=== PATIENT | female | born 1945 | race Caucasian/White ===

== ENCOUNTER → 2018-10-03 | Outpatient (CLI) | payer MEDICARE, BC ==
[~2018-10-03] MED LIST: ALBU90OI INH; ASPI325 PO; ASPI81CH; BUDE6HFA INH; CALMAGZIN PO; CELE200; CEPH500 PO; CHOL10002; CIPRO500 MG PO; CLON1 PO; Cleocin HCl300 MG PO; DOCU100; ERGO400 PO; FLUSAL1005 INH; HYOS.125 SL; LATA.005SO BOTHEYES; LAVAP17G PO; LIDO2L MM; LOSA50 PO; METR500 PO; MONT10T PO; MULVITMIND PO; NORT25 PO; OXYACE5T PO; PRAV20 PO; SERT50; TRAM50 PO; Zofran8 MG PO
== END | disposition home or self-care (01) ==
LOC: LAB SHORT 11:55 → LAB 11:55
DX: J44.9 Chronic obstructive pulmonary disease, unspecified (principal)
CPT/HCPCS: 87070; 87077; 87147; 87186; 87205

== ENCOUNTER 2018-12-08 20:29 | Inpatient (IN) | payer MEDICARE, BC ==
[~2018-12-08] VITALS: Ht 157.5 cm; Wt 55.5 kg
[~2018-12-08 20:29] MED LIST changes: +CALCIUM-MAGNES1 EAC2 PO; -CALMAGZIN PO; -CELE200; +CELE200 PO; -CHOL10002; +CHOL10002 PO; -MULVITMIND PO; +Multivitamin1 EAC1 PO
[2018-12-08 21:11] LABS: BASOPHILS ABSOLUTE AUTO 0.15 K/mm3 (0.00-0.23); BASOPHILS PERCENT AUTO 1 % (0-2); EOSINOPHILS ABSOLUTE AUTO 1.69 K/mm3 (0.00-0.68); EOSINOPHILS PERCENT AUTO 16 % (0-6); Hematocrit 42.1 % (33.0-51.0); Hemoglobin 13.9 g/dL (11.5-16.0); IMMATURE GRAN ABSOLUTE AUTO 0.03 K/mm3 (0.00-0.10); IMMATURE GRAN PERCENT AUTO 0 % (0-1); LYMPHOCYTES ABSOLUTE AUTO 1.41 K/mm3 (0.84-5.20); LYMPHOCYTES PERCENT AUTO 13 % (21-46); MONOCYTES ABSOLUTE AUTO 0.72 K/mm3 (0.16-1.47); MONOCYTES PERCENT AUTO 7 % (4-13); Mean Corpuscular Volume 94 fL (80-100); Mean Platelet Volume 8.5 fL (9.1-12.4); NEUTROPHILS ABSOLUTE AUTO 6.65 K/mm3 (1.96-9.15); NEUTROPHILS PERCENT AUTO 62 % (41-73); Platelet Count 311 K/mm3 (150-400); RDW Coefficient Variation 12.4 % (11.7-14.2); Red Blood Cell Count 4.48 M/mm3 (3.80-5.20); White Blood Cell Count 10.65 K/mm3 (4.00-11.30)
[2018-12-08 21:35] LABS: Alanine Aminotransfer (ALT/SGP 32 U/L (12-78); Albumin, Blood 4.1 g/dL (3.4-5.0); Albumin/Globulin Ratio 1.2 (0.8-1.8); Alk Phos 117 U/L (50-136); Anion Gap 8 mmol/L (6-16); Aspartate Aminotrans (AST/SGOT 26 U/L (12-37); Bilirubin, Total 0.4 mg/dL (0.1-1.0); Blood Urea Nitrogen 20 mg/dL (8-24); Bun/Creatinine Ratio 24.2 (12.0-20.0); CO2, Blood 28 mmol/L (21-32); Chloride, Blood 99 mmol/L (98-108); Creatinine, Blood 0.83 mg/dL (0.40-1.00); Globulin, Blood 3.3 g/dL (2.2-4.0); Glomerular Filtration Rate >60 (60-); Glucose, Blood 146 mg/dL (70-99); Potassium, Blood 3.7 mmol/L (3.5-5.5); Sodium, Blood 135 mmol/L (136-145); Total Protein, Blood 7.4 g/dL (6.4-8.2); Troponin I <0.015 ng/mL (0.000-0.040)
[2018-12-08 22:47] LABS: PCO2 Arterial 40.5 mmHg (35-45); PO2 Arterial 89.7 mmHg (80-100); pH Blood Arterial 7.41 (7.35-7.45)
[2018-12-09] MEDS ORDERED: Aspirin EC81 MG PO (02:08)
[2018-12-09] MEDS ORDERED: SERT100 PO (02:16)
[2018-12-09] MEDS ORDERED: TIOT18 INH (02:25)
--- NOTE | 2018-12-09 07:20 | NUR ---
AM ASSESSMENT: Pt resting in bed on 2L NC. SOB with any activity and states that it feels like she just can't take a deep breath. Biox 95%. Decreased down to 1L NC. LS with fine crackles in bases. BT positive. HR reg but slightly tachy at low 100. Pulses palp. No edema noted. Pt denies pain, SOB. Chronic numbness in ring finger only. Call light in reach. Denies other needs.
--- NOTE | 2018-12-09 08:21 | NUR ---
END OF SHIFT SUMMARY ASSUMED CARE FROM ED. PT ON BIPAP UPON COMING INTO ROOM. SWITCHED TO 2L NC UPON GETTING INTO PCU BED. PT TOLERATIG WELL, SPO2 >92%. PT ASKED TO WEAR BIAPAP IN ORDER TO GET SOME REST. TOERATED WELL. BIPAP SETTINGS 10/5 FIO2 25%. PT HYPERTENSIVE UPON ADMISSION, DR WILLSON PLACES ORDER TO GIVE AM COZAAR DOSE EARLY. PT'S BP DECREASES FROM 1710'S TO 140S SYSTOLICALLY. PT HAS BEEN UP TO BS, BECOMES SLIGHTLY DYSPNEIC WITH THIS EXERTION. PT HAS APPEARED TO HAVE RESTED POST ADMISSION ASSESMENT. CALL LIGHT WITHIN REACH AND BED IN LOWEST POSITION.
--- NOTE | 2018-12-09 13:15 | NUR ---
TRANSFER: TRANSFER ORDERS TO MEDICAL FLOOR. REPORT CALLED TO MEDICAL FLOOR RN AND PT TRANSFERED VIA W/C TO ROOM 343. STABLE AT TIME OF TRANFSER.
--- NOTE | 2018-12-09 15:09 | NUR ---
NOTIFIED DR. ELDER PT'S BP 184/[address] ELDER SAID TO ORDER 10MG IV HYDRALAZINE Q6H PRN FOR SYSTOLIC BP GREATER THAN 180. NO OTHER NEW ORDERS AT THIS TIME.
--- NOTE | 2018-12-09 16:59 | NUR ---
SHIFT SUMMARY- PT PCU TRANSFER THIS AFTERNOON. PT AXO X4. PT REPORTS MILD SOB. 92% ON 2L NC. BP AND HR ELEVATED. SEE PREVIOUS NOTE. MEDS GIVEN PER EMAR. REPORT GIVEN TO UNA Kearns RN. NO OTHER SIGNIFICANT CHANGES THIS SHIFT.
--- NOTE | 2018-12-09 19:16 | NUR ---
PT. SITTINING IN BED. TOOK OVER CARE OF PT. FROM ARIN GARCIA. IV APRESOLINE HAD BEEN GIVEN FOR A BP OF 184/106. BP POST APRESOLINE 139/108. HEART RATE TACY AT 118. WILL TURN OVER CARE TO ONCOMING FABBY GARCIA.
--- NOTE | 2018-12-10 03:40 | NUR ---
SHIFT SUMMARY PT ADMITTED FOR COPD. DROPLET ISOLATION FOR MRSA IN SPUTUM ON 10/03/18 AND HX OF MRSA IN NARES FROM 2017. FULL CODE. REGULAR DIET. TELE-SINUS TACHYCARDIA AT A RATE OF 102 PER FUGITIVE INVESTIGATOR. LOVENOX FOR DVT PROPHYLAXIS. PCU 12 TRANSFER TODAY. PT IS A RETIRED NURSE. 3L O2 VIA NC WITH CONT BIOX AND BIPAP IN PLACE AT THIS TIME. 1 ASSIST TO BR. 20G IV TO L AC. TAKES MEDICATION WHOLE. THE PT PRESENTED WITH C/O SOB. THE PT IS NOT ON HOME OXYGEN. THE PT WAS APPARENTLY FINISHING A STEROID TAPER DOSE AT HOME AND WHEN DECREASED TO 5MG THE PT STATED HAVING INCREASED SOB. IN THE ED IT WAS NOTED THAT PT HAD SOB WITH TRIPODDING AND WAS PLACED ON BIPAP. WHEN REMOVAL OF BIPAP WAS ATTEMPTED THAT PT DESAT TO 80% AND WAS PLACED ON O2 VIA NC AND IMPROVED. THE PT IS ALERT, ORIENTED, PLEASENT, AND COOPERATIVE. THE PT FREQUENTLY WAITS UNTIL REMOVAL OF GOWN, GLOVES, AND MASK BEFORE ASKING FOR ADDITIONAL ASSISTANCE EVEN WHEN ASKED IS FURTHER ASSISTANCE IS NEEDED. OFFER REASSURANCE AND PROVIDE QUESTIONS TO ENCOURAGE PT ABILITY TO VOICE NEEDS TO CLUSTER CARE. THE PT WENT TO SLEEP AROUND 0100 THIS AM WITH BIPAP IN PLACE. THE PT HAS APPEARED TO SLEEP COMFORTABLY MOST OF THE NIGHT WITH NO APPARENT SIGNS OF ACUTE DISTRESS. ABLE TO MAKE NEEDS KNOWN AND CALL LIGHT IN REACH.
[2018-12-10 04:56] LABS: BASOPHILS ABSOLUTE AUTO 0.02 K/mm3 (0.00-0.23); BASOPHILS PERCENT AUTO 0 % (0-2); EOSINOPHILS ABSOLUTE AUTO 0.01 K/mm3 (0.00-0.68); EOSINOPHILS PERCENT AUTO 0 % (0-6); Hematocrit 42.4 % (33.0-51.0); Hemoglobin 13.6 g/dL (11.5-16.0); IMMATURE GRAN ABSOLUTE AUTO 0.03 K/mm3 (0.00-0.10); IMMATURE GRAN PERCENT AUTO 0 % (0-1); LYMPHOCYTES ABSOLUTE AUTO 0.53 K/mm3 (0.84-5.20); LYMPHOCYTES PERCENT AUTO 5 % (21-46); MONOCYTES ABSOLUTE AUTO 0.28 K/mm3 (0.16-1.47); MONOCYTES PERCENT AUTO 3 % (4-13); Mean Corpuscular HGB 30.1 pg (26.0-34.0); Mean Corpuscular HGB Conc 32.1 g/dL (31.5-36.5); Mean Corpuscular Volume 94 fL (80-100); Mean Platelet Volume 8.8 fL (9.1-12.4); NEUTROPHILS PERCENT AUTO 92 % (41-73); Platelet Count 310 K/mm3 (150-400); RDW Coefficient Variation 12.6 % (11.7-14.2); RDW Standard Deviation 43.6 fL (35.1-46.3); Red Blood Cell Count 4.52 M/mm3 (3.80-5.20); White Blood Cell Count 10.57 K/mm3 (4.00-11.30)
[2018-12-10 05:41] LABS: Alanine Aminotransfer (ALT/SGP 27 U/L (12-78); Albumin, Blood 4.1 g/dL (3.4-5.0); Albumin/Globulin Ratio 1.2 (0.8-1.8); Alk Phos 92 U/L (50-136); Anion Gap 6 mmol/L (6-16); Aspartate Aminotrans (AST/SGOT 19 U/L (12-37); Bilirubin, Total 0.3 mg/dL (0.1-1.0); Blood Urea Nitrogen 20 mg/dL (8-24); Bun/Creatinine Ratio 29.2 (12.0-20.0); CO2, Blood 27 mmol/L (21-32); Calcium, Blood 9.1 mg/dL (8.5-10.1); Chloride, Blood 102 mmol/L (98-108); Creatinine, Blood 0.69 mg/dL (0.40-1.00); Globulin, Blood 3.5 g/dL (2.2-4.0); Glomerular Filtration Rate >60 (60-); Glucose, Blood 135 mg/dL (70-99); Potassium, Blood 4.2 mmol/L (3.5-5.5); Sodium, Blood 135 mmol/L (136-145); Total Protein, Blood 7.6 g/dL (6.4-8.2)
--- NOTE | 2018-12-10 19:13 | NUR ---
SHIFT SUMMARY: NO ACUTE CHANGES TO REPORT THIS SHIFT. PT A&O; CALM AND COOPERATIVE WITH CARE. MEDICATED FOR PAIN PER EMAR. TELE IN PLACE; ST @ 107 PER MAINSPRING WINDER DURING MORNING ASSESSMENT. O2 TITRATED TO 2L THIS SHIFT; 97% PER CONT BIOX. IV STEROIDS CONTINUING. REPORT GIVEN TO ONCOMING RN.
--- NOTE | 2018-12-11 04:30 | NUR ---
SHIFT SUMMARY NO APPARENT ACUTE CHANGES NOTED SO FAR THIS SHIFT. THE PT DID NOT WEAR BIPAP THIS NIGHT AND DESAT TO 87, APPLIED O2 AT 2L AND INCREASED TO 91%. PT ASKED TO HAVE DOOR CLOSED, PT USES CALL LIGHT APPROPRIATELY. THE PT APPEARS TO BE SLEEPING COMFORTABLY AT THIS TIME WITH NO APPARENT SIGNS FO ACUTE DISTRESS. ABLE TO MAKE NEEDS KNOWN AND CALL LIGHT IN REACH.
[2018-12-11 07:13] LABS: BASOPHILS ABSOLUTE AUTO 0.03 K/mm3 (0.00-0.23); BASOPHILS PERCENT AUTO 0 % (0-2); EOSINOPHILS ABSOLUTE AUTO 0.01 K/mm3 (0.00-0.68); EOSINOPHILS PERCENT AUTO 0 % (0-6); Hematocrit 39.7 % (33.0-51.0); Hemoglobin 12.7 g/dL (11.5-16.0); IMMATURE GRAN ABSOLUTE AUTO 0.04 K/mm3 (0.00-0.10); IMMATURE GRAN PERCENT AUTO 0 % (0-1); LYMPHOCYTES ABSOLUTE AUTO 1.09 K/mm3 (0.84-5.20); LYMPHOCYTES PERCENT AUTO 12 % (21-46); MONOCYTES ABSOLUTE AUTO 0.62 K/mm3 (0.16-1.47); MONOCYTES PERCENT AUTO 7 % (4-13); Mean Corpuscular HGB 30.2 pg (26.0-34.0); Mean Corpuscular Volume 95 fL (80-100); Mean Platelet Volume 8.6 fL (9.1-12.4); NEUTROPHILS ABSOLUTE AUTO 7.16 K/mm3 (1.96-9.15); NEUTROPHILS PERCENT AUTO 80 % (41-73); Platelet Count 306 K/mm3 (150-400); RDW Coefficient Variation 12.8 % (11.7-14.2); RDW Standard Deviation 44.1 fL (35.1-46.3); White Blood Cell Count 8.95 K/mm3 (4.00-11.30)
[2018-12-11 07:26] LABS: Alanine Aminotransfer (ALT/SGP 30 U/L (12-78); Albumin, Blood 3.9 g/dL (3.4-5.0); Albumin/Globulin Ratio 1.2 (0.8-1.8); Alk Phos 86 U/L (50-136); Anion Gap 7 mmol/L (6-16); Aspartate Aminotrans (AST/SGOT 15 U/L (12-37); Bilirubin, Total 0.3 mg/dL (0.1-1.0); Blood Urea Nitrogen 15 mg/dL (8-24); Bun/Creatinine Ratio 22.6 (12.0-20.0); CO2, Blood 29 mmol/L (21-32); Calcium, Blood 8.7 mg/dL (8.5-10.1); Chloride, Blood 101 mmol/L (98-108); Creatinine, Blood 0.66 mg/dL (0.40-1.00); Globulin, Blood 3.2 g/dL (2.2-4.0); Glomerular Filtration Rate >60 (60-); Glucose, Blood 108 mg/dL (70-99); Potassium, Blood 4.1 mmol/L (3.5-5.5); Sodium, Blood 137 mmol/L (136-145); Total Protein, Blood 7.1 g/dL (6.4-8.2)
--- NOTE | 2018-12-11 18:57 | NUR ---
SHIFT SUMMARY VISITED. PT HAD MILKD PAIN IN HER NECK/BACK, TREATED PER EMAR. TELE DC'D. R POWERGLIDE C/D/I AND FLUSHES WELL. ON 2L WITH CONT PULSE OX. SBA TO BR, CALLS APPROPRIATELY. DROPLET FOR MRSA IN SPUTUM. ABX CHANGED TO VANCO TO COVER MRSA. HOME O2 EVAL TO BE DONE TOMORROW. HAD CT, AWAITING RESULTS. CALL LIGHT IN REACH, WCTM
[2018-12-12 04:57] LABS: BASOPHILS ABSOLUTE AUTO 0.08 K/mm3 (0.00-0.23); BASOPHILS PERCENT AUTO 1 % (0-2); EOSINOPHILS PERCENT AUTO 3 % (0-6); Hematocrit 37.5 % (33.0-51.0); IMMATURE GRAN ABSOLUTE AUTO 0.03 K/mm3 (0.00-0.10); IMMATURE GRAN PERCENT AUTO 0 % (0-1); LYMPHOCYTES ABSOLUTE AUTO 1.55 K/mm3 (0.84-5.20); LYMPHOCYTES PERCENT AUTO 17 % (21-46); MONOCYTES ABSOLUTE AUTO 0.84 K/mm3 (0.16-1.47); MONOCYTES PERCENT AUTO 9 % (4-13); Mean Corpuscular HGB 31.1 pg (26.0-34.0); Mean Corpuscular Volume 97 fL (80-100); Mean Platelet Volume 8.6 fL (9.1-12.4); NEUTROPHILS ABSOLUTE AUTO 6.32 K/mm3 (1.96-9.15); NEUTROPHILS PERCENT AUTO 69 % (41-73); Platelet Count 276 K/mm3 (150-400); RDW Coefficient Variation 12.8 % (11.7-14.2); RDW Standard Deviation 45.7 fL (35.1-46.3); Red Blood Cell Count 3.86 M/mm3 (3.80-5.20); White Blood Cell Count 9.12 K/mm3 (4.00-11.30)
[2018-12-12 05:16] LABS: Alanine Aminotransfer (ALT/SGP 25 U/L (12-78); Albumin, Blood 3.6 g/dL (3.4-5.0); Albumin/Globulin Ratio 1.3 (0.8-1.8); Alk Phos 76 U/L (50-136); Anion Gap 5 mmol/L (6-16); Aspartate Aminotrans (AST/SGOT 15 U/L (12-37); Bilirubin, Total 0.4 mg/dL (0.1-1.0); Blood Urea Nitrogen 25 mg/dL (8-24); Bun/Creatinine Ratio 33.6 (12.0-20.0); CO2, Blood 30 mmol/L (21-32); Calcium, Blood 8.4 mg/dL (8.5-10.1); Chloride, Blood 103 mmol/L (98-108); Creatinine, Blood 0.74 mg/dL (0.40-1.00); Globulin, Blood 2.8 g/dL (2.2-4.0); Glomerular Filtration Rate >60 (60-); Glucose, Blood 89 mg/dL (70-99); Magnesium, Blood 2.5 mg/dL (1.6-2.4); Phosphorus, Blood 4.1 mg/dL (2.5-4.9); Potassium, Blood 3.7 mmol/L (3.5-5.5); Sodium, Blood 138 mmol/L (136-145); Total Protein, Blood 6.4 g/dL (6.4-8.2)
--- NOTE | 2018-12-12 06:25 | NUR ---
SHIFT SUMMARY PATIENT IS ALERT AND ORIENTED, USES CALL LIGHT APPROPRIATELY. HAS A POWER GLIDE IN RIGHT UPPER ARM THAT FLUSHES WELL AND DRAWS BACK BLOOD WELL. PATIENT IS TO HAVE A HOME O2 EVAL TODAY. MS ON 2L NC, CONTINUOUS BIOX. PATIENT SLEPT WELL THROUGHOUT THE NIGHT. PATIENT IS LIKELY TO DISCHARGE TODAY. NO COMPLAINTS OF CP OR SOB DURING SHIFT. VITALS STABLE.
[2018-12-12] MEDS ORDERED: Acetaminophen325 M1 PO (13:05)
[2018-12-12] MEDS ORDERED: DOXY100 PO (13:09)
[2018-12-12] MEDS ORDERED: PRED10 (13:25)
--- NOTE | 2018-12-12 14:30 | NUR ---
Mewt pt in bed resting ,pt reports to be doing nvery well, encourageds pt. and offered prayers .
--- NOTE | 2018-12-12 14:40 | NUR ---
DISCHARGE PT DISCHARGED TO HOME. THIS RN EXPLAINED DISCHARGE INSTRUCTIONS AND MEDICATIONS TO PT AND SHE REPORTS SHE UNDERSTANDS. POWERGLIDE REMOVED WITHOUT DIFFICULTY. PT TRANSFERRED TO PRIVATE VEHICLE VIA WHEELCHAIR BY DIRECTOR TECHNICAL. PT'S BELONGINGS WITH SPOUSE.
== END 2018-12-12 13:51 | disposition home or self-care (01) | DRG 189 ==
LOC: ER 20:29 → MEDS 12-09 00:50 → PCU 12-09 00:50 → MEDS 12-09 01:54 → EDPENDDIS 12-11 13:57 → ENPENDDIS 12-11 13:57 → MEDS 12-11 22:23
PROVIDERS: Emergency Medicine; Family Medicine; Physician Assistant; ADMIT Internal Medicine
PROC: 5A09357 Assistance with Respiratory Ventilation, Less than 24 Consecutive Hours, Continuous Positive Airway Pressure (ICD-10-PCS; principal; 2018-12-09)
DX: J96.01 Acute respiratory failure with hypoxia (principal); J44.1 Chronic obstructive pulmonary disease with (acute) exacerbation; A49.02 Methicillin resistant Staphylococcus aureus infection, unspecified site; I10 Essential (primary) hypertension; E78.5 Hyperlipidemia, unspecified; J32.9 Chronic sinusitis, unspecified; Z87.891 Personal history of nicotine dependence
CPT/HCPCS: 36415; 36600; 71046; 71260; 80053; 82803; 83605; 83735; 84100; 84145; 84484; 85025; 87040; 87070; 87077; 87147; 87186; 87205; 93005; 93010; 94640; 94644; 94660; 94664; 94667; 94760; 94761; 94762; 96365; 96366; 96368; 96375; 98960; 99285-25; J0360; J0696; J1650; J2543; J2920; J2930; J3370; J3475; J7050; J7120; Q9967

== ENCOUNTER 2018-12-27 13:29 | Inpatient (IN) | payer MEDICARE, BC ==
[~2018-12-27] VITALS: Ht 157.5 cm; Wt 55.8 kg
[~2018-12-27 13:29] MED LIST changes: +Acetaminophen325 M1 PO; +Aspirin EC81 MG PO; +DOXY100 PO; +PRED10; +SERT100 PO; +TIOT18 INH
[2018-12-27 14:31] LABS: BASOPHILS ABSOLUTE AUTO 0.06 K/mm3 (0.00-0.23); BASOPHILS PERCENT AUTO 1 % (0-2); EOSINOPHILS ABSOLUTE AUTO 0.78 K/mm3 (0.00-0.68); EOSINOPHILS PERCENT AUTO 15 % (0-6); Hematocrit 39.4 % (33.0-51.0); Hemoglobin 12.8 g/dL (11.5-16.0); IMMATURE GRAN ABSOLUTE AUTO 0.02 K/mm3 (0.00-0.10); IMMATURE GRAN PERCENT AUTO 0 % (0-1); LYMPHOCYTES ABSOLUTE AUTO 0.89 K/mm3 (0.84-5.20); LYMPHOCYTES PERCENT AUTO 17 % (21-46); MONOCYTES ABSOLUTE AUTO 0.49 K/mm3 (0.16-1.47); MONOCYTES PERCENT AUTO 10 % (4-13); Mean Corpuscular HGB 30.4 pg (26.0-34.0); Mean Corpuscular HGB Conc 32.5 g/dL (31.5-36.5); Mean Corpuscular Volume 94 fL (80-100); Mean Platelet Volume 8.6 fL (9.1-12.4); NEUTROPHILS ABSOLUTE AUTO 2.87 K/mm3 (1.96-9.15); NEUTROPHILS PERCENT AUTO 56 % (41-73); Platelet Count 223 K/mm3 (150-400); RDW Coefficient Variation 12.5 % (11.7-14.2); RDW Standard Deviation 43.4 fL (35.1-46.3); Red Blood Cell Count 4.21 M/mm3 (3.80-5.20); White Blood Cell Count 5.11 K/mm3 (4.00-11.30)
[2018-12-27 14:56] LABS: Alanine Aminotransfer (ALT/SGP 39 U/L (12-78); Albumin, Blood 3.6 g/dL (3.4-5.0); Albumin/Globulin Ratio 1.2 (0.8-1.8); Alk Phos 82 U/L (50-136); Anion Gap 6 mmol/L (6-16); Aspartate Aminotrans (AST/SGOT 20 U/L (12-37); Bilirubin, Total 0.3 mg/dL (0.1-1.0); Blood Urea Nitrogen 11 mg/dL (8-24); Bun/Creatinine Ratio 15.9 (12.0-20.0); CO2, Blood 28 mmol/L (21-32); Calcium, Blood 8.6 mg/dL (8.5-10.1); Chloride, Blood 99 mmol/L (98-108); Creatinine, Blood 0.69 mg/dL (0.40-1.00); Globulin, Blood 3.1 g/dL (2.2-4.0); Glomerular Filtration Rate >60 (60-); Glucose, Blood 94 mg/dL (70-99); Sodium, Blood 133 mmol/L (136-145); Total Protein, Blood 6.7 g/dL (6.4-8.2); Troponin I <0.015 ng/mL (0.000-0.040)
[2018-12-28 05:11] LABS: BASOPHILS ABSOLUTE AUTO 0.01 K/mm3 (0.00-0.23); BASOPHILS PERCENT AUTO 0 % (0-2); EOSINOPHILS PERCENT AUTO 0 % (0-6); Hemoglobin 12.8 g/dL (11.5-16.0); IMMATURE GRAN ABSOLUTE AUTO 0.04 K/mm3 (0.00-0.10); IMMATURE GRAN PERCENT AUTO 1 % (0-1); LYMPHOCYTES ABSOLUTE AUTO 0.32 K/mm3 (0.84-5.20); LYMPHOCYTES PERCENT AUTO 6 % (21-46); MONOCYTES ABSOLUTE AUTO 0.04 K/mm3 (0.16-1.47); MONOCYTES PERCENT AUTO 1 % (4-13); Mean Corpuscular HGB 30.1 pg (26.0-34.0); Mean Corpuscular HGB Conc 32.8 g/dL (31.5-36.5); Mean Corpuscular Volume 92 fL (80-100); Mean Platelet Volume 8.8 fL (9.1-12.4); NEUTROPHILS ABSOLUTE AUTO 4.59 K/mm3 (1.96-9.15); NEUTROPHILS PERCENT AUTO 92 % (41-73); Platelet Count 229 K/mm3 (150-400); RDW Coefficient Variation 12.4 % (11.7-14.2); RDW Standard Deviation 41.5 fL (35.1-46.3); Red Blood Cell Count 4.25 M/mm3 (3.80-5.20)
[2018-12-28 05:42] LABS: Alanine Aminotransfer (ALT/SGP 35 U/L (12-78); Albumin, Blood 3.6 g/dL (3.4-5.0); Albumin/Globulin Ratio 1.1 (0.8-1.8); Alk Phos 77 U/L (50-136); Anion Gap 9 mmol/L (6-16); Aspartate Aminotrans (AST/SGOT 19 U/L (12-37); Bilirubin, Total 0.5 mg/dL (0.1-1.0); Blood Urea Nitrogen 16 mg/dL (8-24); Bun/Creatinine Ratio 22.7 (12.0-20.0); CO2, Blood 26 mmol/L (21-32); Calcium, Blood 8.7 mg/dL (8.5-10.1); Chloride, Blood 99 mmol/L (98-108); Creatinine, Blood 0.71 mg/dL (0.40-1.00); Globulin, Blood 3.2 g/dL (2.2-4.0); Glomerular Filtration Rate >60 (60-); Glucose, Blood 154 mg/dL (70-99); Potassium, Blood 3.8 mmol/L (3.5-5.5); Sodium, Blood 134 mmol/L (136-145); Total Protein, Blood 6.8 g/dL (6.4-8.2)
--- NOTE | 2018-12-28 06:30 | NUR ---
NOC SHIFT SUMMARY PT ADMITTED YESTERDAY FOR COPD EXACERBATION. HAD PREVIOUSLY BEEN ADMITTED FOR SIMILAR AND DISCAHRGED ON 12/12. HX OF MRSA IN SPUTUM. SPUTUM SAMPLE OBTAINED LAST NIGHT THUS FAR SHOWS GRAM POSITIVE COCCI AND BACILLI. MULTIPLE UPDRAFTS HAVE BEEN OFFERED THIS NIGHT. IS PRESENTLY ON 2LNC AND VSS. SHE IS AAOX4 AND PLEASANT AND COOPERATIVE WITH CARE. PRESENTLY SITTING UP IN BED AND APPEARS IN NO ACUTE DISTRESS. RESP ARE EVEN AND UNLABORED THOUGH SHE DOES HAVE A PRODUCTIVE COUGH. WILL CONTINUE TO MONITOR.
--- NOTE | 2018-12-28 08:31 | NUR ---
DR. GARCIA IN TO SEE PT THIS AM. DR. GARCIA SAID TO PUT IN ORDER FOR PHYSICAL THERAPY. NO OTHER NEW ORDERS AT THIS TIME.
--- NOTE | 2018-12-28 19:07 | NUR ---
SHIFT SUMMARY- PT DENIES PAIN. DENIES N/V. REPORTS SOB WITH ACTIVITY. 96% ON 2L O2 NC. BREATHING TX'S PER EMAR. RESPIRATORY HELD HOME O2 EVAL DUE TO PT REPORTING SOB WITH O2 ON AND PT NOT D/C TODAY. RESPIRATORY REPORTS THEY WILL TRY TOMORROW. SBA TO THE BATHROOM. NO OTHER SIGNIFICANT CHANGES THIS SHIFT.
--- NOTE | 2018-12-29 05:02 | NUR ---
NOC SHIFT SUMMARY PT AAOX4, PLEASANT AND COOPERATIVE WITH CARE. SHE HAS HAD COUGHING FITS THIS NIGHT WHICH LEAVE HER TEMPORATILY OUT OF BREATH. TREATED PER EMAR AND WITH RT BREATHING TREATMENTS TO GOOD EFFECT. IV IN RFA WAS PAINFUL AND SO WAS REMOVED AND IV REPLACED IN LAC. VSS. NO ACUTE CHANGES NOTED THIS NIGHT. WILL CONTINUE TO MONITOR.
[2018-12-29 16:41] LABS: Vancomycin, Trough 11.9 ug/mL (5.0-10.0)
--- NOTE | 2018-12-29 18:40 | NUR ---
SHIFT SUMMARY- PT DENIES PAIN. DENIES N/V. REPORTS SOB WITH ACTIVITY. 96% ON 2L O2 NC. HOME O2 EVAL DONE TODAY. BREATHING TX'S PER EMAR. ECHO DONE TODAY. PT HAD VENOUS DUPLEX OF BLE TODAY. SBA TO THE BATHROOM. NO OTHER SIGNIFICANT CHANGES THIS SHIFT.
[2018-12-30 05:06] LABS: BASOPHILS ABSOLUTE AUTO 0.01 K/mm3 (0.00-0.23); BASOPHILS PERCENT AUTO 0 % (0-2); EOSINOPHILS PERCENT AUTO 0 % (0-6); Hematocrit 35.3 % (33.0-51.0); Hemoglobin 11.5 g/dL (11.5-16.0); IMMATURE GRAN ABSOLUTE AUTO 0.16 K/mm3 (0.00-0.10); IMMATURE GRAN PERCENT AUTO 1 % (0-1); LYMPHOCYTES ABSOLUTE AUTO 0.45 K/mm3 (0.84-5.20); LYMPHOCYTES PERCENT AUTO 4 % (21-46); MONOCYTES ABSOLUTE AUTO 0.41 K/mm3 (0.16-1.47); MONOCYTES PERCENT AUTO 4 % (4-13); Mean Corpuscular HGB 29.9 pg (26.0-34.0); Mean Corpuscular HGB Conc 32.6 g/dL (31.5-36.5); Mean Corpuscular Volume 92 fL (80-100); Mean Platelet Volume 8.7 fL (9.1-12.4); NEUTROPHILS ABSOLUTE AUTO 10.33 K/mm3 (1.96-9.15); NEUTROPHILS PERCENT AUTO 91 % (41-73); Platelet Count 235 K/mm3 (150-400); RDW Coefficient Variation 12.7 % (11.7-14.2); RDW Standard Deviation 42.5 fL (35.1-46.3); Red Blood Cell Count 3.84 M/mm3 (3.80-5.20); White Blood Cell Count 11.36 K/mm3 (4.00-11.30)
[2018-12-30 05:25] LABS: Albumin, Blood 3.4 g/dL (3.4-5.0); Anion Gap 6 mmol/L (6-16); Blood Urea Nitrogen 16 mg/dL (8-24); Bun/Creatinine Ratio 22.9 (12.0-20.0); CO2, Blood 28 mmol/L (21-32); Chloride, Blood 101 mmol/L (98-108); Glomerular Filtration Rate >60 (60-); Glucose, Blood 126 mg/dL (70-99); Magnesium, Blood 2.6 mg/dL (1.6-2.4); Potassium, Blood 3.6 mmol/L (3.5-5.5); Sodium, Blood 135 mmol/L (136-145)
--- NOTE | 2018-12-30 05:44 | NUR ---
SHIFT SUMMARY NO ACUTE CHANGES. PT REMAINED ON RA THE ENTIRE NIGHT. O2 SATS REMAINED IN THE MID 90'S. PT HAS HARSH MOSTLY NON PRODUCTIVE COUGH OCCASSIONALLY. MILD SOB W/ EXERTION BUT PT AMBULATED THROUGH THE HALLS AND TOLERATED WELL. LUNG SOUNDS COARSE THROUGHOUT. VSS. MEDICATED X 1 W/ 1 MG PO ATIVAN FOR ANXIETY. PT REPORTS THAT SHE SLEPT WELL AND WAS FEELING "GOOD" THIS AM. PT RESTING AT THIS TIME.
--- NOTE | 2018-12-30 17:02 | NUR ---
SHIFT SUMMARY THE PATIENT PRESENT THIS MORNING A&O X4, VITALS WNL AND WITH WHEEZEY LUNG SOUNDS. THE PATIENT HAS BEEN UP IN HER ROOM AND HAS WALKED AROUND THE FLOOR THIS SHIFT. THE PATIENT'S DOCTOR CHANGED SOME OF THE PATIENT'S MEDICATIONS AROUND. THE PATIENT HAS HAD SEVERAL VISITORS THIS SHIFT. THE PATIENT IS RESTING AT THIS TIME, WILL CONTINUE TO MONITOR.
[2018-12-30 17:42] LABS: Adenovirus Not Detected (NOT DETECT); Bordetella pertussis Not Detected (NOT DETECT); Chlamydophila pneumoniae Not Detected (NOT DETECT); Coronavirus 229E Not Detected (NOT DETECT); Coronavirus HKU1 Not Detected (NOT DETECT); Coronavirus NL63 Not Detected (NOT DETECT); Coronavirus OC43 Not Detected (NOT DETECT); Human Metapneumovirus Not Detected (NOT DETECT); Human Rhinovirus/Enterovirus Not Detected (NOT DETECT); Influenza A Not Detected (NOT DETECT); Influenza A/2009-H1 Not Detected (NOT DETECT); Influenza A/H1 Not Detected (NOT DETECT); Influenza A/H3 Not Detected (NOT DETECT); Influenza B Not Detected (NOT DETECT); Mycoplasma pneumoniae Not Detected (NOT DETECT); Parainfluenza Virus 1 Not Detected (NOT DETECT); Parainfluenza Virus 2 Not Detected (NOT DETECT); Parainfluenza Virus 3 Not Detected (NOT DETECT); Parainfluenza Virus 4 Not Detected (NOT DETECT); Respiratory Syncytial Virus Not Detected (NOT DETECT)
[2018-12-31 05:42] LABS: BASOPHILS ABSOLUTE AUTO 0.01 K/mm3 (0.00-0.23); BASOPHILS PERCENT AUTO 0 % (0-2); EOSINOPHILS PERCENT AUTO 0 % (0-6); Hematocrit 35.5 % (33.0-51.0); Hemoglobin 11.7 g/dL (11.5-16.0); IMMATURE GRAN ABSOLUTE AUTO 0.15 K/mm3 (0.00-0.10); IMMATURE GRAN PERCENT AUTO 1 % (0-1); LYMPHOCYTES ABSOLUTE AUTO 0.81 K/mm3 (0.84-5.20); LYMPHOCYTES PERCENT AUTO 8 % (21-46); MONOCYTES ABSOLUTE AUTO 0.65 K/mm3 (0.16-1.47); MONOCYTES PERCENT AUTO 6 % (4-13); Mean Corpuscular HGB 29.9 pg (26.0-34.0); Mean Corpuscular Volume 91 fL (80-100); Mean Platelet Volume 8.4 fL (9.1-12.4); NEUTROPHILS ABSOLUTE AUTO 8.91 K/mm3 (1.96-9.15); NEUTROPHILS PERCENT AUTO 85 % (41-73); Platelet Count 247 K/mm3 (150-400); RDW Coefficient Variation 12.6 % (11.7-14.2); RDW Standard Deviation 41.2 fL (35.1-46.3); Red Blood Cell Count 3.91 M/mm3 (3.80-5.20); White Blood Cell Count 10.53 K/mm3 (4.00-11.30)
[2018-12-31 06:17] LABS: Albumin, Blood 3.4 g/dL (3.4-5.0); Anion Gap 7 mmol/L (6-16); Blood Urea Nitrogen 18 mg/dL (8-24); Bun/Creatinine Ratio 27.9 (12.0-20.0); CO2, Blood 27 mmol/L (21-32); Calcium, Blood 7.9 mg/dL (8.5-10.1); Chloride, Blood 101 mmol/L (98-108); Creatinine, Blood 0.65 mg/dL (0.40-1.00); Glomerular Filtration Rate >60 (60-); Glucose, Blood 109 mg/dL (70-99); Phosphorus, Blood 2.5 mg/dL (2.5-4.9); Potassium, Blood 3.6 mmol/L (3.5-5.5); Sodium, Blood 135 mmol/L (136-145); Troponin I <0.015 ng/mL (0.000-0.040)
--- NOTE | 2018-12-31 06:44 | NUR ---
SHIFT SUMMARY NO ACUTE CHANGES. PT REMAINS ON RA. AMBULATES THROUGHOUT THE HALLS WITHOUT DIFFICULTY. APPEARS TO BE BREATHING EASIER THIS EVENING. ALTHOUGH REPORTED THAT SHE HAD A DIFFICULT DAY YESTERDAY WITH COUGHING. ORAL LIDOCAINE GIVEN FOR WHAT PT DESCRIBES "RAW MOUTH". WORKED WELL PER PT. 1 DOSE OF 1 MG PO ATIVAN GIVEN WITH MIDNIGHT SOLUMEDROL DOSE. PT SLEPT OFF AND ON THROUGHOUT THE NIGHT. PLEASANT AND COOPERATIVE. VSS. WILL CONTINUE TO MONITOR AND REPORT TO DAY RN.
[2018-12-31] MEDS ORDERED: GUAI600T33 PO (14:03)
[2018-12-31] MEDS ORDERED: Xylocaine5 M1 PO (14:06)
[2018-12-31] MEDS ORDERED: OMEPRAZOLE20 MG PO (14:07)
[2018-12-31] MEDS ORDERED: PRED10 PO (14:07)
[2018-12-31] MEDS ORDERED: ALBU3IS INH (14:29)
--- NOTE | 2018-12-31 15:40 | NUR ---
PATIENT DISCHARGE THE PATIENT WAS DISCHARGED HOME WITH HER SPOUSE, AFTER DISCHARGE INSTRUCTIONS WERE GIVEN TO THE PATIENT. THE PATIENT WAS INSTRUCTED TO FOLLOW UP WITH HER DOCTORS AND TO ASSISTANT SPA MANAGER HER PRESCRIPTIONS ORDERED. THE PATIENT LEFT THE HOSPIAL AT 1440, WITHOUT CONCERN OR COMPLAINT.
== END 2018-12-31 14:42 | disposition home or self-care (01) | DRG 189 ==
LOC: ER 13:29 → MEDS 13:30 → ENPENDDIS 12-31 12:35 → MEDS 12-31 14:42
PROVIDERS: Internal Medicine Gastroenterology; Pharmacist Critical Care; Physician Assistant; ADMIT Family Medicine
DX: J96.21 Acute and chronic respiratory failure with hypoxia (principal); J44.1 Chronic obstructive pulmonary disease with (acute) exacerbation; F41.9 Anxiety disorder, unspecified; Z22.322 Carrier or suspected carrier of Methicillin resistant Staphylococcus aureus; Z86.718 Personal history of other venous thrombosis and embolism; K21.9 Gastro-esophageal reflux disease without esophagitis; I10 Essential (primary) hypertension; F41.8 Other specified anxiety disorders; E78.5 Hyperlipidemia, unspecified; Z87.891 Personal history of nicotine dependence
CPT/HCPCS: 36415; 71046; 80053; 80069; 80202; 83605; 83735; 83880; 84145; 84484; 85025; 87070; 87205; 87486; 87581; 87633; 87798; 93005; 93010; 93306; 93970; 94640; 94644; 94660; 94760; 94761; 96374; 96375; 99285-25; J1650; J2060; J2543; J2930; J3370; J7512

== ENCOUNTER 2019-02-14 12:22 | Day surgery (SDC) | payer MEDICARE, BC ==
[~2019-02-14] VITALS: Ht 157.5 cm; Wt 23.2 kg
[~2019-02-14 12:22] MED LIST changes: +ALBU3IS INH; +GUAI600T33 PO; +OMEPRAZOLE20 MG PO; +PRED10 PO; +Xylocaine5 M1 PO
== END 2019-02-14 14:55 | disposition home or self-care (01) ==
LOC: ORSCSDS 12:22
PROVIDERS: Internal Medicine Gastroenterology
PROC: 0DB68ZX Excision of Stomach, Via Natural or Artificial Opening Endoscopic, Diagnostic (ICD-10-PCS; principal; 2019-02-14 13:45)
PROC: 0D757ZZ Dilation of Esophagus, Via Natural or Artificial Opening (ICD-10-PCS; principal; 2019-02-14 13:45)
PROC: 0DB58ZX Excision of Esophagus, Via Natural or Artificial Opening Endoscopic, Diagnostic (ICD-10-PCS; principal; 2019-02-14 13:45)
DX: R13.14 Dysphagia, pharyngoesophageal phase (principal); B37.81 Candidal esophagitis; K29.70 Gastritis, unspecified, without bleeding; I10 Essential (primary) hypertension; J44.9 Chronic obstructive pulmonary disease, unspecified; Z87.891 Personal history of nicotine dependence; Z79.899 Other long term (current) drug therapy; Z79.82 Long term (current) use of aspirin; Z86.718 Personal history of other venous thrombosis and embolism
CPT/HCPCS: 87081; 88305; 88312; J2704

== ENCOUNTER 2019-04-04 13:03 | Day surgery (SDC) | payer MEDICARE, BC ==
[~2019-04-04] VITALS: Ht 157.5 cm; Wt 57.7 kg
--- NOTE | 2019-04-04 13:39 | NUR ---
04/04/19 1339 Emy Griffiths FIRST IV ATTEMPT IN RIGHT AC INFILTRATED. SECOND ATTEMPT IN RIGHT HAND WAS SUCCESSFUL AND TOLERATED WELL. BOTH ATTEMPTS BY [facility].KDG
== END 2019-04-04 15:12 | disposition home or self-care (01) ==
LOC: ORSCSDS 13:03
PROVIDERS: Internal Medicine Gastroenterology
PROC: 0DB58ZX Excision of Esophagus, Via Natural or Artificial Opening Endoscopic, Diagnostic (ICD-10-PCS; principal; 2019-04-04 14:15)
PROC: 0D757ZZ Dilation of Esophagus, Via Natural or Artificial Opening (ICD-10-PCS; principal; 2019-04-04 14:15)
DX: R13.14 Dysphagia, pharyngoesophageal phase (principal); B37.81 Candidal esophagitis; I10 Essential (primary) hypertension; Z79.899 Other long term (current) drug therapy; E78.5 Hyperlipidemia, unspecified; K21.9 Gastro-esophageal reflux disease without esophagitis; J44.9 Chronic obstructive pulmonary disease, unspecified; Z87.891 Personal history of nicotine dependence; Z79.82 Long term (current) use of aspirin
CPT/HCPCS: 88305; 88312; J2704; J7120

== ENCOUNTER 2019-04-08 09:26 | Inpatient (IN) | payer MEDICARE, BC ==
[~2019-04-08] VITALS: Ht 165.1 cm; Wt 58.8 kg
[2019-04-08 10:16] LABS: BASOPHILS ABSOLUTE AUTO 0.14 K/mm3 (0.00-0.23); BASOPHILS PERCENT AUTO 2 % (0-2); EOSINOPHILS ABSOLUTE AUTO 1.67 K/mm3 (0.00-0.68); EOSINOPHILS PERCENT AUTO 18 % (0-6); Hemoglobin 14.2 g/dL (11.5-16.0); IMMATURE GRAN ABSOLUTE AUTO 0.02 K/mm3 (0.00-0.10); IMMATURE GRAN PERCENT AUTO 0 % (0-1); LYMPHOCYTES PERCENT AUTO 9 % (21-46); MONOCYTES ABSOLUTE AUTO 0.72 K/mm3 (0.16-1.47); MONOCYTES PERCENT AUTO 8 % (4-13); Mean Corpuscular HGB 30.1 pg (26.0-34.0); Mean Corpuscular Volume 91 fL (80-100); Mean Platelet Volume 8.5 fL (9.1-12.4); NEUTROPHILS PERCENT AUTO 64 % (41-73); Platelet Count 292 K/mm3 (150-400); RDW Coefficient Variation 12.1 % (11.7-14.2); RDW Standard Deviation 40.8 fL (35.1-46.3); Red Blood Cell Count 4.71 M/mm3 (3.80-5.20); White Blood Cell Count 9.55 K/mm3 (4.00-11.30)
[2019-04-08 10:35] LABS: Alanine Aminotransfer (ALT/SGP 30 U/L (12-78); Albumin, Blood 4.2 g/dL (3.4-5.0); Albumin/Globulin Ratio 1.3 (0.8-1.8); Alk Phos 104 U/L (50-136); Anion Gap 7 mmol/L (6-16); Aspartate Aminotrans (AST/SGOT 35 U/L (12-37); Bilirubin, Total 0.7 mg/dL (0.1-1.0); Blood Urea Nitrogen 15 mg/dL (8-24); Bun/Creatinine Ratio 23.4 (12.0-20.0); CO2, Blood 27 mmol/L (21-32); Calcium, Blood 8.8 mg/dL (8.5-10.1); Chloride, Blood 94 mmol/L (98-108); Creatinine, Blood 0.64 mg/dL (0.40-1.00); Globulin, Blood 3.3 g/dL (2.2-4.0); Glomerular Filtration Rate >60 (60-); Glucose, Blood 94 mg/dL (70-99); Sodium, Blood 128 mmol/L (136-145); Total Protein, Blood 7.5 g/dL (6.4-8.2); Troponin I <0.015 ng/mL (0.000-0.040)
[2019-04-08] MEDS ORDERED: MONT10T PO (12:09)
[2019-04-08] MEDS ORDERED: Nortriptyline H50 MG PO (12:09)
[2019-04-08] MEDS ORDERED: CELE200 PO (12:09)
[2019-04-08] MEDS ORDERED: LOSA50 PO (12:10)
[2019-04-08] MEDS ORDERED: LATA.005SO BOTHEYES (12:10)
[2019-04-08] MEDS ORDERED: Pravachol40 MG PO (12:10)
[2019-04-08] MEDS ORDERED: CLON1 PO (12:10)
[2019-04-08] MEDS ORDERED: SERT100 PO (12:11)
[2019-04-08] MEDS ORDERED: SPIRIVA RESPIMAT4 GM INH (12:11)
[2019-04-08] MEDS ORDERED: MIRALAX17 GM PO (12:14)
[2019-04-08] MEDS ORDERED: Aspir 8181 MG PO (12:14)
[2019-04-08] MEDS ORDERED: ALBU90OI INH (12:14)
[2019-04-08] MEDS ORDERED: MULTI VITAMIN1 EACH PO (12:14)
[2019-04-08] MEDS ORDERED: POLY500 PO (12:15)
[2019-04-08] MEDS ORDERED: VITAMIN D400 UNI1 PO (12:15)
[2019-04-08] MEDS ORDERED: CALCIUM CIT-VI1 EAC1 PO (12:15)
[2019-04-08] MEDS ORDERED: ALBU3IS NEB (12:16)
[2019-04-08] MEDS ORDERED: Chest Congesti400 MG PO (12:17)
[2019-04-08 12:43] LABS: Base Excess Venous -0.2 mmol/L; Bicarbonate Venous 24.3 mmol/L (24.0-30.0); PCO2 Venous 39.3 mmHg (38-42); PO2 Venous 79.9 mmHg (38-42)
--- NOTE | 2019-04-08 14:50 | NUR ---
PT ARRIVAL... PT ARRIVED TO UNIT VIA GURNEY, PT WAS ON 4L NC WITH O2 SATS >92% BUT PT WAS WORKING VERY HARD TO BREATH USING ACCESSORY MUSCLES AND TRIPODING. PT WAS HELPED TO PUT THE BIPAP MASK BACK ON. PER REPORT FROM TELEMARKETER SUPERVISOR PT "WANTED A BREAK." AFTER PT PUT BIPAP MASK BACK ON WORK OF BREATHING IMPROVED AND PT WAS MORE RELAXED. PT IS HYPERTENSIVE AT 175/114, HR SINUS TACH AT 114. PT'S L/S VERY COARSE, TIGHT WITH WHEEZES T/O. PT HAS TRACE EDEMA TO HER BLE. BT PRESENT AND NORMOACTIVE. PT'S IS AT THE BEDSIDE. WILL CONTINUE TO MONITOR.
[2019-04-08] MEDS ORDERED: CLOT10 SS (15:58)
--- NOTE | 2019-04-08 18:32 | NUR ---
SHIFT SUMMARY. PT HAS BEEN ENCOURAGED TO WEAR BIPAP AND EDUCATED ON WHY IT IS IMPORTANT THAT SHE WEAR IT MUCH POSSIBLE AT THIS TIME. PT HAS BEEN VERY ANXIOUS AND FIDGETY, PT HAS BEEN PULLING ON BIPAP MASK, TAKING IT PARTIALLY OF TO TAKE DRINKS OF WATER AND ALSO SUCKING ON A LOZENGER WHILE WEARING THE BIPAP MASKE. PT AND EDUCATED ON THE RISKS OF ASPIRATION WHILE WEARING THE MASK. PT WAS ABLE TO VERBALIZE THAT SHE COULD TELL A DIFFERENCE WHEN SHE WAS ON THE BIPAP AND WHEN SHE WAS NOT AND STATED HER UNDERSTANDING OF WHY SHE WAS NEEDING TO USE THE BIPAP AT THIS TIME. PT IS HYPERTENSIVE, MEDICATION WAS GIVEN PER EMAR AND PROVIDER AWARE. CALL LIGHT IN REACH, BED IS LOCKED AND LOW WILL CONTINUE TO MONITOR UNTIL REPORT IS GIVEN TO ON COMING RN.
[2019-04-09 04:07] LABS: BASOPHILS ABSOLUTE AUTO 0.04 K/mm3 (0.00-0.23); BASOPHILS PERCENT AUTO 0 % (0-2); EOSINOPHILS ABSOLUTE AUTO 0.04 K/mm3 (0.00-0.68); EOSINOPHILS PERCENT AUTO 0 % (0-6); Hematocrit 41.9 % (33.0-51.0); Hemoglobin 13.8 g/dL (11.5-16.0); IMMATURE GRAN ABSOLUTE AUTO 0.09 K/mm3 (0.00-0.10); IMMATURE GRAN PERCENT AUTO 1 % (0-1); LYMPHOCYTES ABSOLUTE AUTO 0.48 K/mm3 (0.84-5.20); LYMPHOCYTES PERCENT AUTO 3 % (21-46); MONOCYTES ABSOLUTE AUTO 0.91 K/mm3 (0.16-1.47); MONOCYTES PERCENT AUTO 6 % (4-13); Mean Corpuscular HGB 29.9 pg (26.0-34.0); Mean Corpuscular HGB Conc 32.9 g/dL (31.5-36.5); Mean Corpuscular Volume 91 fL (80-100); Mean Platelet Volume 8.6 fL (9.1-12.4); NEUTROPHILS ABSOLUTE AUTO 14.02 K/mm3 (1.96-9.15); NEUTROPHILS PERCENT AUTO 90 % (41-73); Platelet Count 304 K/mm3 (150-400); RDW Standard Deviation 39.9 fL (35.1-46.3); Red Blood Cell Count 4.61 M/mm3 (3.80-5.20); White Blood Cell Count 15.58 K/mm3 (4.00-11.30)
[2019-04-09 04:35] LABS: Alanine Aminotransfer (ALT/SGP 26 U/L (12-78); Albumin, Blood 3.8 g/dL (3.4-5.0); Albumin/Globulin Ratio 1.2 (0.8-1.8); Alk Phos 98 U/L (50-136); Anion Gap 10 mmol/L (6-16); Aspartate Aminotrans (AST/SGOT 25 U/L (12-37); Bilirubin, Total 0.9 mg/dL (0.1-1.0); Blood Urea Nitrogen 20 mg/dL (8-24); Bun/Creatinine Ratio 36.4 (12.0-20.0); CO2, Blood 26 mmol/L (21-32); Calcium, Blood 8.7 mg/dL (8.5-10.1); Chloride, Blood 92 mmol/L (98-108); Creatinine, Blood 0.55 mg/dL (0.40-1.00); Globulin, Blood 3.1 g/dL (2.2-4.0); Glomerular Filtration Rate >60 (60-); Glucose, Blood 126 mg/dL (70-99); Potassium, Blood 4.1 mmol/L (3.5-5.5); Sodium, Blood 128 mmol/L (136-145); Total Protein, Blood 6.9 g/dL (6.4-8.2)
--- NOTE | 2019-04-09 05:21 | NUR ---
Shift Summary Pt with VSS this shift. On BIPAP from 1900 until approx 0300. Pt compliant with BIPAP. Pt with break from BIPAP from approx 0300 until 0530, pt on NC 4L with saturations >95% and breathing easy and unlabored. At appros 0530 pt requesting BIPAP. Pt with 4 loose extra large BM this shift. MD called and notified of multiple loose BM and GI panel ordered per MD. Panel sent off per orders. Otherwise uneventful night. No events on tele, pt remains alert and oriented, uses call light appropriately. SBA to BSC. No acute changes from initial shift assessment. Call light in reach, bed low and locked. Will continue to monitor and provide care per MD orders.
[2019-04-09 07:37] LABS: Adenovirus F 40/41 Not Detected (NOT DETECT); Astrovirus Not Detected (NOT DETECT); Campylobacter Sp Not Detected (NOT DETECT); Cryptosporidium Not Detected (NOT DETECT); Cyclospora Cayetanensis Not Detected (NOT DETECT); E. Coli O157 Not Detected (NOT DETECT); Entamoeba Histolytica Not Detected (NOT DETECT); Enteroaggregative E. coli-EAEC Not Detected (NOT DETECT); Enteropathogenic E. coli-EPEC Not Detected (NOT DETECT); Enterotoxigenic E. coli-ETEC Not Detected (NOT DETECT); Giardia Lamblia Not Detected (NOT DETECT); Norovirus GI/GII Not Detected (NOT DETECT); Plesiomonas Shigelloides Not Detected (NOT DETECT); Rotavirus A Not Detected (NOT DETECT); Salmonella Sp Not Detected (NOT DETECT); Sapovirus Not Detected (NOT DETECT); Shiga Toxin-prod E. coli-STEC Not Detected (NOT DETECT); Shigella/Enteroin E. coli-EIEC Not Detected (NOT DETECT); Vibrio Cholerae Not Detected (NOT DETECT); Vibrio Sp Not Detected (NOT DETECT); Yersinia Enterocolitica Not Detected (NOT DETECT)
--- NOTE | 2019-04-09 09:29 | NUR ---
AM NOTE. ASSUMED CARE OF PT APROX 0700. PT IS A&Ox4 AND SBA IN THE ROOM. PT'S WORK OF BREATHING HAS IMPROVED, WHEEZES HAVE DECREASED BUT L/S STILL COARSE T/O. PT IS ON BIPAP AT 10/5 AND 35% FIO2 AND 3L NC. VS STABLE AT THIS TIME. PT DENIES CHEST PAIN/PRESSURE OR N/V. PT HAS HAD SEVERAL EPISODES OF DIARRHEA THIS AM, STOOL SAMPLE WAS SENT AND IS NEGATIVE FOR C.DIFF. AM CARE WAS DONE WITH SET UP ASSIST. PT'S AT THE BEDSIDE. WILL CONTINUE TO MONITOR.
[2019-04-09 15:06] LABS: Source, Urine Clean Catch
[2019-04-09 15:08] LABS: Bilirubin, Urine Neg (Neg); Blood, Urine 1+ (Neg); Glucose Qualitative, Urine 2+ (Neg); Ketones, Urine Neg (Neg); Leukocyte Esterase, Urine Neg (Neg); Nitrite, Urine Neg (Neg); Protein, Urine Neg (Neg); Urobilinogen, Urine NORM (Normal)
[2019-04-09 15:15] LABS: Appearance, Urine Clear (Clear); Color, Urine Yellow (P-Yellow)
[2019-04-09 15:18] LABS: Bacteria Rare /hpf; Red Blood Cells, Urine 0-2 /hpf (0-2); Squamous Epithelial Cells Few /hpf (Few); White Blood Cells, Urine 0-2 /hpf (0-5)
--- NOTE | 2019-04-09 17:12 | NUR ---
SHIFT SUMMARY. NO ACUTE NEGATIVE CHANGES NOTED THIS SHIFT. PT HAS BEEN OFF OF THE BIPAP MOST OF THE DAY, PT'S WORK OF BREATHING HAS IMPROVED SINCE YESTERDAY. PT WAS TITRATED FROM 4L NC TO 1 L NC WITH O2 SATS >92%. PT HAS BEEN ABLE TO GET UP AND AMBULATE TO THE BATHROOM WITH MINIMAL INCREASE OF SOB. PT'S URINE IS CURRENTLY DARK TEA IN COLOR, THIS IS A CHANGE FROM YESTERDAY WHEN HER URINE WAS LIGHT YELLOW. PROVIDER WAS NOTIFIED AND UA WAS DONE (SEE LABS), PT DENIES ANY SIGNS/SYMPTOMS OF UTI. PT REQUESTED TO BE PLACED BACK ON THE BIPAP D/T SLIGHT "TIGHTNESS" IN HER CHEST, PT IS TOLERATING THE BIPAP WELL AT THIS TIME. PT'S WAS AT THE BEDSIDE OFF AND ON T/O THE SHIFT. PT WAS MEDICATED FOR ANXIETY ONCE TODAY PER EMAR WITH GOOD RESULTS. CALL LIGHT IN REACH, BED IS LOCKED AND LOW WILL CONTINUE TO MONITOR UNTIL REPORT IS GIVEN TO ONCOMING RN.
--- NOTE | 2019-04-10 05:29 | NUR ---
Shift Summary No acute changes this shift. Pt remains alert and oriented, uses call light appropriately. VSS. Pt able to ambulate to bathroom for voids this shift. Denies chest pain or pressure. No events on tele. Pt tolerating 1L NC for majority of shift. Pt requests BIPAP PRN. No apparent sign of distress. No changes from initial shift assessment. Pt remains breathing easy and unlabored. Pt tolerating plan of care and interventions well, asks questions, is interested in learning. Pt sleeping at this time, bed is low and locked, call light in reach. Will continue to montior and provide care per orders.
--- NOTE | 2019-04-10 09:45 | NUR ---
AM NOTE. ASSUMED CARE OF PT APROX 0700. PT IS A&Ox4 AND SBA IN THE ROOM. PT WAS ADMITTED FOR RESP FAILURE. PT HAS GREALY IMPROVED SINCE ADMIT. PT IS ON 1L NC TO RA USING THE BIPAP LESS AND LESS. PT'S VS STABLE AT THIS TIME. PT HAS HARSH PRODUCTIVE COUGH, SPUTUM SAMPLE WAS SENT TO LAB. L/S CLEAR AND DIM T/O. PT'S AT THE BEDSIDE. WILL CONTINUE TO MONITOR.
--- NOTE | 2019-04-10 17:29 | NUR ---
SHIFT SUMMARY. NO ACUTE NEGATIVE CHANGES NOTED THIS SHIFT. PT'S VS HAVE BEEN STABLE. PT HAS NOT BEEN ON BIPAP AT ALL THIS SHIFT. PT HAS BEEN UP IND IN THE ROOM BEING ON RA AND NEEDING 1L NC PRN. PT'S WALKED WITH PT AROUND THE UNIT, PT STATED SHE TOLERATED THIS WELL BUT GOT TIRED QUICKLY. PT'S COUGH HAS IMPROVED SINCE THIS AM. PT WAS ABLE TO SHOWER WITH ASSISTANCE THIS SHIFT. CALL LIGHT IN REACH, BED IS LOCKED AND LOW WILL CONTINUE TO MONITOR UNTIL REPORT IS GIVEN TO ONCOMING RN.
[2019-04-11 03:40] LABS: BASOPHILS ABSOLUTE AUTO 0.02 K/mm3 (0.00-0.23); BASOPHILS PERCENT AUTO 0 % (0-2); EOSINOPHILS ABSOLUTE AUTO 0.01 K/mm3 (0.00-0.68); EOSINOPHILS PERCENT AUTO 0 % (0-6); Hematocrit 40.4 % (33.0-51.0); Hemoglobin 13.5 g/dL (11.5-16.0); IMMATURE GRAN ABSOLUTE AUTO 0.02 K/mm3 (0.00-0.10); IMMATURE GRAN PERCENT AUTO 0 % (0-1); LYMPHOCYTES ABSOLUTE AUTO 0.71 K/mm3 (0.84-5.20); LYMPHOCYTES PERCENT AUTO 9 % (21-46); MONOCYTES ABSOLUTE AUTO 0.75 K/mm3 (0.16-1.47); MONOCYTES PERCENT AUTO 9 % (4-13); Mean Corpuscular HGB 30.5 pg (26.0-34.0); Mean Corpuscular HGB Conc 33.4 g/dL (31.5-36.5); Mean Corpuscular Volume 91 fL (80-100); Mean Platelet Volume 8.5 fL (9.1-12.4); NEUTROPHILS ABSOLUTE AUTO 6.69 K/mm3 (1.96-9.15); NEUTROPHILS PERCENT AUTO 82 % (41-73); Platelet Count 320 K/mm3 (150-400); RDW Coefficient Variation 12.2 % (11.7-14.2); RDW Standard Deviation 40.9 fL (35.1-46.3); Red Blood Cell Count 4.42 M/mm3 (3.80-5.20)
[2019-04-11 04:00] LABS: Anion Gap 6 mmol/L (6-16); Blood Urea Nitrogen 15 mg/dL (8-24); Bun/Creatinine Ratio 24.4 (12.0-20.0); CO2, Blood 28 mmol/L (21-32); Calcium, Blood 8.9 mg/dL (8.5-10.1); Chloride, Blood 99 mmol/L (98-108); Creatinine, Blood 0.62 mg/dL (0.40-1.00); Glomerular Filtration Rate >60 (60-); Glucose, Blood 120 mg/dL (70-99); Potassium, Blood 4.5 mmol/L (3.5-5.5); Sodium, Blood 133 mmol/L (136-145)
--- NOTE | 2019-04-11 06:17 | NUR ---
SHIFT SUMMARY PT SLEEPING IN ROOM COMFORTABLY AT THIS TIME. NO ACUTE CHANGES IN STATSU T/O NIGHT. PT DID NOT USE BIPAP DURING NIGHT, PT WAS ON RA AND SATS REMAINED >92%. PT C/O COUGH T/O NIGHT AND WAS MEDICATED W/ THROAT LOSENGE PER EMAR. DENIED CP, REPORTS ONLY HAS MINOR SOB AFTER COUGHING EPISODE. PT IS INDEPENDENT IN ROOM TO RR. CALLS APPROPRIATELY. CALL LIGHT IN REACH.
--- NOTE | 2019-04-11 15:09 | NUR ---
Pt. is doing much better offered prayer s and support.
--- NOTE | 2019-04-11 20:47 | NUR ---
ASSUMED CARE OF PATIENT AT [facility] FROM VINAYAK Peterson RN. PATIENT ALERT AND ORIENTED X4; INDEPENDENT IN ROOM. PATIENT REPORTS SOB AFTER WALKING WITH HALLS WITH TODAY. PATIENT REPORTS CHONIC PAIN IN HANDS AND SHOULDERS; USES K-PAD; REPORTS TOLERABLE AT THIS TIME; REFUSES TYLENOL. PATIENT IS MEDICAL NO TELE; REPORTS ST EARLIER TODAY. PATIENT HAS COUGHING EPISODES; LOZENGES GIVEN PRN. PATIENT REPORTS SHE MAY BE GOING HOME TOMORROW. PIV S/L. PATIENT CURRENTLY RESTING IN BED; CALL LIGHT IN REACH; BED IN LOWEST POSISTION; WILL CONTINUE TO MONITOR AND ASSESS UNTIL END OF SHIFT.
--- NOTE | 2019-04-12 06:37 | NUR ---
PATIENT SLEPT ABOUT EIGHT HOURS LAST NIGHT. PATIENT HAS HARSE COUGH. VSS. NO OTHER ACUTE CHANGES TO REPORT. WILL CONTINUE TO MONITOR AND ASSESS UNTIL END OF SHIFT.
--- NOTE | 2019-04-12 07:40 | NUR ---
pt laying in bed awake a/ox3 , pleasant and cooperative with care, follows commands well, denies pain or sob at this time, reports she gets a bit sob with activity, but is better, reports a productive cough of thick gree/yellow sputum, and green discharge from nose, states she has a chronic sinus infection, lungs are clear in upper villa, dim in bases, resp even and unlabored, she is on r/a at this time, hrr, no edema noted, ppp+2, cap refill <3sec, vs stable afebrile, iv site is clear and patent, btx4, nay flat soft nontender, she report no bm in a few days, but plans to go home today and has stuff at home to deal with it, voids without diff, skin has some bruisings, otherwise c/w/d, saud tompkins, call light in reach.
[2019-04-12] MEDS ORDERED: TIOT18 INH (11:32)
[2019-04-12] MEDS ORDERED: ALBU3IS INH (11:34)
[2019-04-12] MEDS ORDERED: PRED10 PO ×2 (11:37→11:49)
--- NOTE | 2019-04-12 12:00 | NUR ---
PT HAS BEEN DISCHARGED TO HOME, WENT OVER DISCHARGE INSTRUCTIONS WITH HER, SHE VERBALIZED UNDERSTANDING, NEW MEDICATIONS CALLED INTO [facility] IN [place], IV REMOVED INTACT, LEFT VIA WHEELCHAIR WITH SURGICAL APPLIANCE FITTER IN ATTENDENCE. SPOUCE HERE TO TAKE HER HOME, SHE HAS ALL HER BELONGINGS.
--- NOTE | 2019-04-12 14:15 | NUR ---
Pt. is dping well and may go home today kosta richards, offered prayers and support.
== END 2019-04-12 12:03 | disposition home or self-care (01) | DRG 189 ==
LOC: ER 09:26 → PCU 09:27
PROVIDERS: Emergency Medicine; Family Medicine; Hospitalist; Internal Medicine; ADMIT Internal Medicine Endocrinology, Diabetes & Metabolism
PROC: 5A09357 Assistance with Respiratory Ventilation, Less than 24 Consecutive Hours, Continuous Positive Airway Pressure (ICD-10-PCS; principal; 2019-04-08)
DX: J96.01 Acute respiratory failure with hypoxia (principal); J44.1 Chronic obstructive pulmonary disease with (acute) exacerbation; E87.1 Hypo-osmolality and hyponatremia; E27.40 Unspecified adrenocortical insufficiency; J20.9 Acute bronchitis, unspecified; I10 Essential (primary) hypertension; M81.0 Age-related osteoporosis without current pathological fracture; M19.90 Unspecified osteoarthritis, unspecified site; K58.9 Irritable bowel syndrome, unspecified; I73.9 Peripheral vascular disease, unspecified; Z79.82 Long term (current) use of aspirin; Z87.891 Personal history of nicotine dependence; F41.8 Other specified anxiety disorders; E78.5 Hyperlipidemia, unspecified; K20.8 Other esophagitis; J32.9 Chronic sinusitis, unspecified; K44.9 Diaphragmatic hernia without obstruction or gangrene; M54.9 Dorsalgia, unspecified; G89.29 Other chronic pain; I35.1 Nonrheumatic aortic (valve) insufficiency; Z22.322 Carrier or suspected carrier of Methicillin resistant Staphylococcus aureus
CPT/HCPCS: 0097U; 36415; 71045; 80048; 80053; 81001; 82803; 84484; 85025; 87070; 87077; 87081; 87147; 87186; 87205; 93005; 93010; 94640; 94644; 94660; 94667; 94760; 94761; 94762; 96374; 99285-25; A9270; C9113; J1650; J2060; J2920; J7512

== ENCOUNTER 2019-05-22 00:23 | Emergency (ER) | payer MEDICARE, BC ==
[~2019-05-22] VITALS: Ht 157.5 cm; Wt 56.7 kg
[~2019-05-22 00:23] MED LIST changes: +ALBU3IS NEB; +Aspir 8181 MG PO; +CALCIUM CIT-VI1 EAC1 PO; +CLOT10 SS; +Chest Congesti400 MG PO; +MIRALAX17 GM PO; +MULTI VITAMIN1 EACH PO; +Nortriptyline H50 MG PO; +POLY500 PO; +Pravachol40 MG PO; +SPIRIVA RESPIMAT4 GM INH; +VITAMIN D400 UNI1 PO
[2019-05-23] MEDS ORDERED: Saline Nose Spr45 ML (12:19)
[2019-05-23] MEDS ORDERED: FERSU300 PO (12:19)
== END 2019-05-22 01:55 | disposition home or self-care (01) ==
LOC: ER 00:23
DX: R04.0 Epistaxis (principal); I10 Essential (primary) hypertension; Z87.891 Personal history of nicotine dependence; Z88.7 Allergy status to serum and vaccine; Z88.2 Allergy status to sulfonamides; Z79.899 Other long term (current) drug therapy; Z79.82 Long term (current) use of aspirin; Z79.52 Long term (current) use of systemic steroids
CPT/HCPCS: 99283

== ENCOUNTER 2019-05-25 08:05 | Emergency (ER) | payer MEDICARE, BC ==
[~2019-05-25] VITALS: Ht 157.5 cm; Wt 56.7 kg
[~2019-05-25 08:05] MED LIST changes: +FERSU300 PO; +Saline Nose Spr45 ML
== END 2019-05-25 09:19 | disposition home or self-care (01) ==
LOC: ER 08:05
DX: R04.0 Epistaxis (principal); I10 Essential (primary) hypertension; Z87.891 Personal history of nicotine dependence; Z88.2 Allergy status to sulfonamides; Z88.7 Allergy status to serum and vaccine; Z79.899 Other long term (current) drug therapy; Z79.52 Long term (current) use of systemic steroids
CPT/HCPCS: 94640; 99283-25

== ENCOUNTER 2019-05-30 20:07 | Inpatient (IN) | payer MEDICARE, BC ==
[~2019-05-30] VITALS: Ht 157.5 cm; Wt 55.6 kg
[~2019-05-30 20:07] MED LIST changes: -Aspir 8181 MG PO; -FERSU300 PO; -Saline Nose Spr45 ML; -VITAMIN D400 UNI1 PO; +Vitamin D2000 UNIT PO
[2019-05-30 20:32] LABS: Hemoglobin 11.5 g/dL (11.5-16.0); Mean Corpuscular HGB 30.6 pg (26.0-34.0); Mean Corpuscular HGB Conc 31.9 g/dL (31.5-36.5); Mean Platelet Volume 8.2 fL (9.1-12.4); Platelet Count 433 K/mm3 (150-400); RDW Coefficient Variation 13.4 % (11.7-14.2); RDW Standard Deviation 46.5 fL (35.1-46.3); Red Blood Cell Count 3.76 M/mm3 (3.80-5.20); White Blood Cell Count 10.86 K/mm3 (4.00-11.30)
[2019-05-30 20:38] LABS: Mean Corpuscular Volume 96 fL (80-100)
[2019-05-30 20:49] LABS: Anion Gap 5 mmol/L (6-16); Blood Urea Nitrogen 14 mg/dL (8-24); Bun/Creatinine Ratio 19.8 (12.0-20.0); CO2, Blood 29 mmol/L (21-32); Chloride, Blood 100 mmol/L (98-108); Creatinine, Blood 0.71 mg/dL (0.40-1.00); Glomerular Filtration Rate >60 (60-); Glucose, Blood 91 mg/dL (70-99); Potassium, Blood 3.9 mmol/L (3.5-5.5); Sodium, Blood 134 mmol/L (136-145)
[2019-05-30] MEDS ORDERED: OMEPRAZOLE20 MG PO (21:52)
[2019-05-30] MEDS ORDERED: Aspir 8181 MG PO (21:58)
[2019-05-30] MEDS ORDERED: FERSU300 PO (22:23)
[2019-05-30] MEDS ORDERED: Saline Nose Spr45 ML (22:23)
[2019-05-30] MEDS ORDERED: ACET500 PO (22:24)
--- NOTE | 2019-05-31 | NUR ---
ASSUMED CARE RECEIVED REPORT FROM ER NURSE. PT IS ALERT AND ORIENTED TO SELF, PLACE, SITUATION AND TIME. SHE IS COMPLAINING OF A HEADACHE, DRY COUGH AND A SORE THROAT. SHE IS NOT CURRENTLY SHOWING SIGNS OF BLEEDING. PT HAS STABLE VITALS. BED IS LOW AND LOCKED AND CALL LIGHT WITHIN REACH. PT IS ORIENTED TO ROOM.
[2019-05-31 05:40] LABS: Hematocrit 28.7 % (33.0-51.0); Hemoglobin 9.4 g/dL (11.5-16.0); Mean Corpuscular HGB 30.8 pg (26.0-34.0); Mean Corpuscular HGB Conc 32.8 g/dL (31.5-36.5); Mean Corpuscular Volume 94 fL (80-100); Mean Platelet Volume 8.2 fL (9.1-12.4); Platelet Count 310 K/mm3 (150-400); RDW Coefficient Variation 13.5 % (11.7-14.2); RDW Standard Deviation 45.9 fL (35.1-46.3); Red Blood Cell Count 3.05 M/mm3 (3.80-5.20); White Blood Cell Count 8.92 K/mm3 (4.00-11.30)
[2019-05-31 05:58] LABS: Alanine Aminotransfer (ALT/SGP 22 U/L (12-78); Albumin/Globulin Ratio 1.1 (0.8-1.8); Alk Phos 72 U/L (50-136); Anion Gap 4 mmol/L (6-16); Aspartate Aminotrans (AST/SGOT 14 U/L (12-37); Bilirubin, Total 0.2 mg/dL (0.1-1.0); Blood Urea Nitrogen 15 mg/dL (8-24); Bun/Creatinine Ratio 22.5 (12.0-20.0); CO2, Blood 28 mmol/L (21-32); Calcium, Blood 8.3 mg/dL (8.5-10.1); Chloride, Blood 104 mmol/L (98-108); Creatinine, Blood 0.67 mg/dL (0.40-1.00); Globulin, Blood 2.8 g/dL (2.2-4.0); Glomerular Filtration Rate >60 (60-); Glucose, Blood 94 mg/dL (70-99); Potassium, Blood 3.5 mmol/L (3.5-5.5); Sodium, Blood 136 mmol/L (136-145); Total Protein, Blood 5.8 g/dL (6.4-8.2)
--- NOTE | 2019-05-31 07:30 | NUR ---
START OF SHIFT NOTE: RECEIVED REPORT FROM TREVER RENO RN, ASSUMED CARE, PATIENT IS AWAKE, ALERT AND ORIENTED, ON RA SATING IN UPPER 90'S, LUNG SOUNDS ARE COARSE WITH EXPIRATORY WHEEZES, PATIENT HAS HISTORY OF ASTHMA AND COPD, NSR, HR IN 70'S, SBP'S IN 110'S TO 120'S, BOWEL TONES PRESENT, PATIENT UP TO ROOM TOILET TO URINATE AND HAVE BM WITH ONE SBA, PEDAL PULSES STRONG, PATIENT C/O "BAD" RUSH'S FOR PAST THREE DAYS, AFEBRILE, CALL LIGHT IN REACH, WILL CONTINUE TO MONITOR.
--- NOTE | 2019-05-31 07:30 | NUR ---
SHIFT SUMMARY PT IS ALERT AND ORIENTED X 4, STATES THAT HER HEADACHE WENT AWAY, BUT FEELS TIRED. SHE HAS NOT BLED SINCE ARRIVAL TO THE ICU, AND HER COUGH HAS DECREASED IN FREQUENCY WITH NEBULIZER TREATMENTS FROM RT. SHE IS IN SINUS RHYTHM WITH A CONTROLLED RATE, STABLE VITALS ALTOGETHER. NO FAMILY AT BEDSIDE. SHE IS A STAND BY ASSIST, BECAUSE SHE CAN GET DIZZY, BUT OTHERWISE MOVES AROUND FINE. SHE STATES SHE HAS BEEN FEELING DIZZY LATELY AND FALLING AT HOME. SHE SLEPT FOR MAJORITY OF THE NIGHT. BED IS LOW AND LOCKED. CALL LIGHT WITHIN REACH.
--- NOTE | 2019-05-31 07:45 | NUR ---
DR. QUARLES, ENT IN TO SEE PATIENT, NEW ORDERS RECEIVED, CT W/CONTRAST ORDERED FOR EXCRUCIATING RUSH X 3 DAYS AND CONSULT FOR PULMONARY/CRITICAL CARE.
--- NOTE | 2019-05-31 08:35 | NUR ---
DR. HUANG IN TO SEE PATIENT, UPDATED ON DR. QUARLES'S VISIT AND ORDERS, RECEIVED ADDITIONAL ORDERS FROM DR. HUANG.
--- NOTE | 2019-05-31 09:25 | NUR ---
PATIENT TO CT SCAN VIA WHEELCHAIR AND TELEBOX, PATIENT IS PCU STATUS.
--- NOTE | 2019-05-31 09:59 | NUR ---
PATIENT RETURNED FROM CT SCAN, TO BSC, VOIDED, RETURNED TO BED AND PLACED BACK ON MONITOR, CALL LIGHT IN REACH, WILL CONTINUE TO MONITOR.
--- NOTE | 2019-05-31 10:00 | NUR ---
DR. TORRES NOTIFIED ABOUT CONSULT, WILL SEE PATIENT AFTER ROUNDS.
--- NOTE | 2019-05-31 10:20 | NUR ---
CALLED PATIENT'S AND PROVIDED UPDATE ON 'S CONDITION.
--- NOTE | 2019-05-31 13:49 | NUR ---
PATIENT IS RESTING COMFORTABLY AT THIS TIME, REPORTS HEADACHE IS DOWN TO 2/10 AND SHE FEELS BETTER, AT BEDSIDE, CALL LIGHT IN REACH, WILL CONTINUE TO MONITOR.
--- NOTE | 2019-05-31 14:51 | NUR ---
PATIENT LYRIC WRITER LIGHT ASKED FOR POSSIBLE ADVANCE OF HER DIET, CALLED DR. HUANG, ORDER FOR CARDIAC DIET OBTAINED, ALSO CALLED DR. QUARLES AND PROVIDED UPDATE, HE WILL COME AND SEE PATIENT TOMORROW.
--- NOTE | 2019-05-31 15:19 | NUR ---
PATIENT REPORTED ANOTHER HEADACHE 910 AT THIS TIME, RECEIVED 100 MG ULTRAM PO, CALL LIGHT IN REACH, WILL CONTINUE TO MONITOR.
--- NOTE | 2019-05-31 16:00 | NUR ---
DR. TORRES IN TO SEE PATIENT, NO NEW ORDERS RECEIVED AT THIS TIME.
--- NOTE | 2019-05-31 17:33 | NUR ---
DR. HUANG IN AGAIN THIS EVENING, UPDATE PROVIDED ON PATIENT CONDITION AND NEW ORDERS BY DR. TORRES, NO NEW ORDERS FROM DR. HUANG.
--- NOTE | 2019-05-31 17:49 | NUR ---
SHIFT SUMMARY NOTE: PATIENT REMAINS AWAKE, ALERT AND ORIENTED, VSS, AFEBRILE, C/O OF WORSE THAN EVER HEADACHE THIS AM, RECEIVED 100 MG OF ULTRAM PO ORDERED, DR. QUARLES ORDERED HEAD CT WITH CONTRAST, NEGATIVE RESULT, PATIENT RESTARTED NASAL RINSES FROM HOME PER DR. QUARLES, UP TO BSC WITH ONE ASSIST, STEADY GAIT, GOOD URINE OUTPUT, BM THIS AM, PATIENT WAS ON A CLEAR LIQUID DIET BUT FELT "REALLY HUNGRY" AND ASKED FOR MORE FOOD, DR. HUANG ORDERED CARDIAC DIET, AND PATIENT ATE WITH GREAT APPETITE, RECEIVED ANOTHER 100 MG PO ULTRAM PRIOR TO DINNER, REPORTS THAT SHE FEELS MUCH BETTER, DR. TORRES CONSULTED, ORDERED AM LABS, FOR DETAILS SEE SHIFT ASSESSMENT DOCUMENTATION AND NURSES NOTES, CALL LIGHT IN REACH, WILL CONTINUE TO MONITOR AND GIVE REPORT TO ONCOMING MINE CAPTAIN.
--- NOTE | 2019-05-31 20:57 | NUR ---
ASSUMED CARE RECEIVED REPORT FROM RADHA CASE. PT IS LYING IN BED AWAKE, ALERT AND ORIENTED X 4, COMPLAINING OF 9/10 HEADACHE PAIN. SHE IS ON ROOM AIR WITH STABLE VITALS. SHE HAS SCD'S ON. BED IS LOW AND LOCKED. CALLL LIGHT WITHIN REACH.
[2019-06-01 05:06] LABS: BASOPHILS ABSOLUTE AUTO 0.11 K/mm3 (0.00-0.23); BASOPHILS PERCENT AUTO 1 % (0-2); EOSINOPHILS ABSOLUTE AUTO 0.92 K/mm3 (0.00-0.68); EOSINOPHILS PERCENT AUTO 11 % (0-6); Hematocrit 30.6 % (33.0-51.0); Hemoglobin 9.8 g/dL (11.5-16.0); IMMATURE GRAN ABSOLUTE AUTO 0.07 K/mm3 (0.00-0.10); IMMATURE GRAN PERCENT AUTO 1 % (0-1); LYMPHOCYTES ABSOLUTE AUTO 1.82 K/mm3 (0.84-5.20); LYMPHOCYTES PERCENT AUTO 21 % (21-46); MONOCYTES ABSOLUTE AUTO 0.78 K/mm3 (0.16-1.47); MONOCYTES PERCENT AUTO 9 % (4-13); Mean Corpuscular HGB 30.3 pg (26.0-34.0); Mean Corpuscular Volume 95 fL (80-100); Mean Platelet Volume 8.1 fL (9.1-12.4); NEUTROPHILS ABSOLUTE AUTO 5.06 K/mm3 (1.96-9.15); NEUTROPHILS PERCENT AUTO 58 % (41-73); Platelet Count 337 K/mm3 (150-400); RDW Coefficient Variation 13.7 % (11.7-14.2); RDW Standard Deviation 47.3 fL (35.1-46.3); Red Blood Cell Count 3.23 M/mm3 (3.80-5.20); White Blood Cell Count 8.76 K/mm3 (4.00-11.30)
[2019-06-01 05:25] LABS: Alanine Aminotransfer (ALT/SGP 20 U/L (12-78); Albumin/Globulin Ratio 1.1 (0.8-1.8); Alk Phos 78 U/L (50-136); Anion Gap 8 mmol/L (6-16); Aspartate Aminotrans (AST/SGOT 16 U/L (12-37); Bilirubin, Total 0.2 mg/dL (0.1-1.0); Blood Urea Nitrogen 15 mg/dL (8-24); Bun/Creatinine Ratio 18.1 (12.0-20.0); CO2, Blood 27 mmol/L (21-32); Calcium, Blood 8.7 mg/dL (8.5-10.1); Chloride, Blood 104 mmol/L (98-108); Creatinine, Blood 0.83 mg/dL (0.40-1.00); Globulin, Blood 2.7 g/dL (2.2-4.0); Glomerular Filtration Rate >60 (60-); Glucose, Blood 93 mg/dL (70-99); Potassium, Blood 3.6 mmol/L (3.5-5.5); Sodium, Blood 139 mmol/L (136-145); Total Protein, Blood 5.7 g/dL (6.4-8.2)
--- NOTE | 2019-06-01 06:36 | NUR ---
SHIFT SUMMARY PT SLEPT FOR MAJORITY OF NIGHT. SHE REMAINS ALERT AND ORIENTED WITH STABLE VITALS. SHE IS ON ROOM AIR. SHE HAS A COUGH, AND COMPLAINS OF A INTENSE HEADACHE 8-9/10 ACHING PAIN. ULTRAM SEEMS TO BE THE MOST HELPFUL FOR IT. SHE COUGHED UP A FEW CLOTS BEFORE MY SHIFT, BUT NONE SINCE. NO OBVIOUS SIGNS OF BLEEDING RIGHT NOW. SHE IS VOIDING WELL AT THE TOILET, STAND BY ASSIST, STEADY GAIT, ALTHOUGH SAYS SHE FEELS DIZZY OCCASIONALLY. SHE IS IN SINUS RHYTHM. SCD'S REMAIN ON. BED IS LOW AND LOCKED.
--- NOTE | 2019-06-01 07:15 | NUR ---
START OF SHIFT NOTE: RECEIVED REPORT FROM TREVER RENO RN, ASSUMED CARE, PATIENT IS AWAKE AND ALERT AND ORIENTED THIS MORNING, REPORTS THAT SHE IS "FEELING MUCH BETTER", STILL HAS OCCASIONAL BLEEDING FROM NOSTRILS, USES HOME NASAL RINSE PER DR. QUARLES, CONTINUES TO HAVE A SLIGHT HEADACHE AT THIS TIME, AFEBRILE, LUNG SOUNDS DIMINISHED WITH EXPIRATORY WHEEZES, NSR, HR 70'S, SBP'S 120'S, CALL LIGHT IN REACH, WILL CONTINUE TO MONITOR.
--- NOTE | 2019-06-01 08:18 | NUR ---
DR. QUARLES IN TO SEE PATIENT, NO NEW ORDERS RECEIVED, OK WITH HIM FOR PATIENT TO BE DISCHARGED HOME.
--- NOTE | 2019-06-01 10:00 | NUR ---
PATIENT RECEIVED 100 MG OF ULTRAM PO FOR 9/10 HEADACHE, PATIENT ALSO HAS AN INCREASED PRODUCTIVE COUGH, WITH THICK SPUTUM, GREEN/YELLOW COLOR.
--- NOTE | 2019-06-01 12:58 | NUR ---
DR. TORRES IS OK WITH DISCHARGE OF PATIENT, DR. VELASCO WAS CALLED BY [employer] STRONG, [employer] [facility] [employer], AND HE WILL WRITE DISCHARGE ORDERS.
[2019-06-01] MEDS ORDERED: CODEINE-GUAIFE120 ML PO (16:02)
--- NOTE | 2019-06-01 17:01 | NUR ---
PATIENT DISCHARGED TO HOME, DISCHARGE INSTRUCTIONS WRITTEN AND VERBAL GIVEN AND EXPLAINED BY MIGUELITO STRONG, ENTEROSTOMAL NURSE, ALSO PRESCRITPIONS CALLED TO PATIENT'S PHARMACY BY MIGUELITO STRONG, ENTEROSTOMAL NURSE.
--- NOTE | 2019-06-01 17:32 | NUR ---
AFTER PATIENT LEFT, DISCHARGE PAPERWORK WAS FOUND TO HAVE BEEN LEFT BEHIND BY PATIENT AND , CALLED PATIENT AND STATED "WE KNOW WHAT TO DO, BUT I WILL PICK IT UP TOMORROW OR TUESDAY", DISCHARGE PAPERWORK AT NURSES STATION.
== END 2019-06-01 17:10 | disposition home or self-care (01) | DRG 151 ==
LOC: ER 20:07 → ICUW 20:08 → PCU 20:08 → ICUW 22:15
PROVIDERS: Emergency Medicine; Internal Medicine Critical Care Medicine; ADMIT Internal Medicine
DX: R04.0 Epistaxis (principal); J44.9 Chronic obstructive pulmonary disease, unspecified; I10 Essential (primary) hypertension; D72.1 Eosinophilia; M81.0 Age-related osteoporosis without current pathological fracture; K21.9 Gastro-esophageal reflux disease without esophagitis; E78.5 Hyperlipidemia, unspecified; F32.9 Major depressive disorder, single episode, unspecified; Z88.2 Allergy status to sulfonamides; Z88.7 Allergy status to serum and vaccine; Z87.891 Personal history of nicotine dependence; Z86.718 Personal history of other venous thrombosis and embolism; Z79.82 Long term (current) use of aspirin; Z79.52 Long term (current) use of systemic steroids; Z79.899 Other long term (current) drug therapy
CPT/HCPCS: 36415; 70470; 80048; 80053; 85025; 85027; 87070; 87077; 87147; 87186; 87205; 94640; 94667; 99285-25; A9270; J3010; J7512; Q9967

== ENCOUNTER 2019-06-12 10:07 | Day surgery (SDC) | payer MEDICARE, BC ==
[~2019-06-12] VITALS: Ht 157.5 cm; Wt 57.3 kg
[~2019-06-12 10:07] MED LIST changes: +ACET500 PO; +Aspir 8181 MG PO; +CODEINE-GUAIFE120 ML PO; +FERSU300 PO; +Saline Nose Spr45 ML
--- NOTE | 2019-06-12 10:27 | NUR ---
06/12/19 1027 Ana Rosenthal EPINEPHRINE USED FOR PLEDGET PACKING FOR HEMOSTASIS.
--- NOTE | 2019-06-12 10:43 | NUR ---
06/12/19 1043 Kaylynn Griffiths LATE ENTRY: PT WAS BROUGHT TO PREOP DIRECTLY FROM THE ED FOR EMERGENCY SURGERY. ADDMISSIONS QUESTION WERE MOSTLY ANSWERED FROM HEALTHCARE RECORD, HOWEVER THE PATIENT ANSWERED SOME WELL. ORSC.KT SIMNOE AN H&H ON THE PT AND DELIVERED IT STAT TO THE LAB. PT ARRIVED WITH A 20G IV IN RIGHT AC, HOWEVER IT DID NOT RUN VERY WELL, IV WAS RESTARTED IN RH. BP IS DOCUMENTED AND REPORTED TO DR JOSHI (SEE VS RECORD).
--- NOTE | 2019-06-12 12:59 | NUR ---
06/12/19 1259 Deborah Christine LATE ENTRY: PRIOR TO DC HOME IV TO RAC DISCONTINUED AND PRESSURE DSG APPLIED. NASAL DRESSING REAPPLIED. PT HAD NO BLEEDING AT ALL T/O RECOVERY.
== END 2019-06-12 12:05 | disposition home or self-care (01) ==
LOC: ORSCSDS 10:07
PROVIDERS: Otolaryngology
PROC: 093K8ZZ Control Bleeding in Nasal Mucosa and Soft Tissue, Via Natural or Artificial Opening Endoscopic (ICD-10-PCS; principal; 2019-06-12 11:30)
DX: R04.0 Epistaxis (principal); I10 Essential (primary) hypertension; J44.9 Chronic obstructive pulmonary disease, unspecified; F17.210 Nicotine dependence, cigarettes, uncomplicated; K21.9 Gastro-esophageal reflux disease without esophagitis; Z79.899 Other long term (current) drug therapy
CPT/HCPCS: 30903; 80047; 85014; 85018; 86850; 86900; 86901; 96374-59; 96375-59; 99284-25; A9270; J0330; J1100; J1170; J1720; J2250; J2370; J2405; J2704; J2710; J3010

== ENCOUNTER → 2019-10-19 | Outpatient (CLI) | payer MEDICARE, BC ==
[2019-10-19 07:45] LABS: Source, Urine Clean Catch
[2019-10-19 08:39] LABS: Bilirubin, Urine Neg (Neg); Blood, Urine 2+ (Neg); Glucose Qualitative, Urine Neg (Neg); Ketones, Urine Neg (Neg); Leukocyte Esterase, Urine 3+ (Neg); Nitrite, Urine Neg (Neg); Protein, Urine 2+ (Neg); Specific Gravity, Urine 1.015 (1.003-1.022); Urobilinogen, Urine NORM (Normal)
[2019-10-19 08:49] LABS: Appearance, Urine Turbid (Clear); Color, Urine Yellow (P-Yellow)
[2019-10-19 08:51] LABS: Bacteria Many /hpf; Squamous Epithelial Cells Not Seen /hpf (Few); White Blood Cells, Urine TNTC /hpf (0-5)
== END | disposition home or self-care (01) ==
LOC: LAB SHORT 07:43 → OLS 07:43
PROVIDERS: Hospitalist
DX: R82.90 Unspecified abnormal findings in urine (principal)
CPT/HCPCS: 81001; 87077; 87086; 87186

== ENCOUNTER → 2019-10-25 | Outpatient (CLI) | payer MEDICARE, BC | END | disposition home or self-care (01) | LOC: LAB 12:11 → LAB SHORT 12:11 | DX: Z09 Encounter for follow-up examination after completed treatment for conditions other than malignant neoplasm (principal); Z86.14 Personal history of Methicillin resistant Staphylococcus aureus infection ==

== ENCOUNTER → 2020-10-01 | Outpatient (CLI) | payer MEDICARE, BC ==
[~2020-10-01] MED LIST changes: +ASPI81CH PO; +BENZ100A PO; +CALCIUM CIT 311 EACH PO; +DELTASONE20 MG PO; +EUTHYROX25 MC1 PO; +IPRAT-ALBUT 0.5-3 ML INH; +MUCINEX FAST M; +MULTIPLE VITAM1 EACH PO; +NORTRIPTYLINE H50 M2 PO; +OMEP20ER PO; +PRAVASTATIN SOD40 MG PO; +SPIRIVA RESPIMAT4 G3 INH; +SPIRONOLACTONE25 MG PO; +WIXELA 500-501 EAC1 INH
== END | disposition home or self-care (01) ==
LOC: LAB SHORT 12:48 → LAB 12:48
DX: J32.4 Chronic pansinusitis (principal)
CPT/HCPCS: 87070; 87075; 87077; 87147; 87186; 87205

== ENCOUNTER 2020-10-03 08:54 | Emergency (ER) | payer MEDICARE, BC ==
[~2020-10-03] VITALS: Ht 157.5 cm; Wt 59.0 kg
[~2020-10-03 08:54] MED LIST changes: -ASPI81CH PO; -BENZ100A PO; -CALCIUM CIT 311 EACH PO; -DELTASONE20 MG PO; -EUTHYROX25 MC1 PO; -IPRAT-ALBUT 0.5-3 ML INH; -MUCINEX FAST M; -MULTIPLE VITAM1 EACH PO; -NORTRIPTYLINE H50 M2 PO; -OMEP20ER PO; -PRAVASTATIN SOD40 MG PO; -SPIRIVA RESPIMAT4 G3 INH; -SPIRONOLACTONE25 MG PO; -WIXELA 500-501 EAC1 INH
[2020-10-03] MEDS ORDERED: LOSA50 PO (09:08)
[2020-10-03] MEDS ORDERED: SPIRONOLACTONE25 MG PO (09:09)
[2020-10-03] MEDS ORDERED: ASPI81CH PO (09:10)
[2020-10-03] MEDS ORDERED: EUTHYROX25 MC1 PO (09:10)
[2020-10-03 10:51] LABS: BASOPHILS ABSOLUTE AUTO 0.07 K/mm3 (0.00-0.23); BASOPHILS PERCENT AUTO 1 % (0-2); EOSINOPHILS ABSOLUTE AUTO 0.21 K/mm3 (0.00-0.68); EOSINOPHILS PERCENT AUTO 3 % (0-6); Hematocrit 41.2 % (33.0-51.0); Hemoglobin 13.8 g/dL (11.5-16.0); IMMATURE GRAN ABSOLUTE AUTO 0.06 K/mm3 (0.00-0.10); IMMATURE GRAN PERCENT AUTO 1 % (0-1); LYMPHOCYTES ABSOLUTE AUTO 1.13 K/mm3 (0.84-5.20); LYMPHOCYTES PERCENT AUTO 15 % (21-46); MONOCYTES ABSOLUTE AUTO 0.61 K/mm3 (0.16-1.47); MONOCYTES PERCENT AUTO 8 % (4-13); Mean Corpuscular HGB 31.1 pg (26.0-34.0); Mean Corpuscular HGB Conc 33.5 g/dL (31.5-36.5); Mean Corpuscular Volume 93 fL (80-100); Mean Platelet Volume 8.2 fL (9.1-12.4); NEUTROPHILS ABSOLUTE AUTO 5.24 K/mm3 (1.96-9.15); NEUTROPHILS PERCENT AUTO 72 % (41-73); Platelet Count 310 K/mm3 (150-400); RDW Coefficient Variation 12.4 % (11.7-14.2); RDW Standard Deviation 42.3 fL (35.1-46.3); Red Blood Cell Count 4.44 M/mm3 (3.80-5.20); White Blood Cell Count 7.32 K/mm3 (4.00-11.30)
[2020-10-03 11:02] LABS: Alanine Aminotransfer (ALT/SGP 30 U/L (12-78); Albumin/Globulin Ratio 1.1 (0.8-1.8); Alk Phos 98 U/L (50-136); Anion Gap 7 mmol/L (6-16); Aspartate Aminotrans (AST/SGOT 22 U/L (12-37); Bilirubin, Total 0.7 mg/dL (0.1-1.0); Blood Urea Nitrogen 14 mg/dL (8-24); Bun/Creatinine Ratio 18.8 (12.0-20.0); CO2, Blood 28 mmol/L (21-32); Calcium, Blood 9.5 mg/dL (8.5-10.1); Chloride, Blood 100 mmol/L (98-108); Creatinine, Blood 0.74 mg/dL (0.40-1.00); Globulin, Blood 3.5 g/dL (2.2-4.0); Glomerular Filtration Rate >60 (60-); Glucose, Blood 89 mg/dL (70-99); Potassium, Blood 4.1 mmol/L (3.5-5.5); Sodium, Blood 135 mmol/L (136-145); Total Protein, Blood 7.5 g/dL (6.4-8.2)
[2020-10-16] MEDS ORDERED: Aspirin EC81 MG PO (13:51)
[2020-10-16] MEDS ORDERED: BENZ100A PO ×2 (13:51→13:52)
[2020-10-16] MEDS ORDERED: ALBU90OI INH (13:51)
[2020-10-16] MEDS ORDERED: CALCIUM CIT 311 EACH PO (13:52)
[2020-10-16] MEDS ORDERED: CELE200 PO (13:52)
[2020-10-16] MEDS ORDERED: CLON1 PO (13:53)
[2020-10-16] MEDS ORDERED: DOXY100 PO (13:53)
[2020-10-16] MEDS ORDERED: LATA.005SO BOTHEYES (13:54)
[2020-10-16] MEDS ORDERED: LOSA50 PO (13:54)
[2020-10-16] MEDS ORDERED: MULTIPLE VITAM1 EACH PO (13:54)
[2020-10-16] MEDS ORDERED: MONT10T PO (13:54)
[2020-10-16] MEDS ORDERED: IPRAT-ALBUT 0.5-3 ML INH (13:54)
[2020-10-16] MEDS ORDERED: OMEP20ER PO (13:55)
[2020-10-16] MEDS ORDERED: NORTRIPTYLINE H50 M2 PO (13:55)
[2020-10-16] MEDS ORDERED: MIRALAX17 GM PO (13:55)
[2020-10-16] MEDS ORDERED: MUCINEX FAST M (13:55)
[2020-10-16] MEDS ORDERED: PRAVASTATIN SOD40 MG PO (13:56)
[2020-10-16] MEDS ORDERED: DELTASONE20 MG PO (13:56)
[2020-10-16] MEDS ORDERED: SERT100 PO (13:56)
[2020-10-16] MEDS ORDERED: SPIRIVA RESPIMAT4 G3 INH (13:57)
[2020-10-16] MEDS ORDERED: WIXELA 500-501 EAC1 INH (13:57)
== END 2020-10-03 11:32 | disposition home or self-care (01) ==
LOC: ER 08:54
PROVIDERS: Emergency Medicine
DX: S81.811A Laceration without foreign body, right lower leg, initial encounter (principal); I10 Essential (primary) hypertension; J44.9 Chronic obstructive pulmonary disease, unspecified; Z79.52 Long term (current) use of systemic steroids; Z79.899 Other long term (current) drug therapy; Z88.7 Allergy status to serum and vaccine; Z88.2 Allergy status to sulfonamides; Z79.82 Long term (current) use of aspirin; W45.8XXA Other foreign body or object entering through skin, initial encounter
CPT/HCPCS: 36415; 73590; 80053; 85025; 99283-25; A9270

== ENCOUNTER 2020-10-23 06:24 | Day surgery (SDC) | payer MEDICARE, BC ==
[~2020-10-23] VITALS: Ht 157.5 cm; Wt 59.0 kg
[~2020-10-23 06:24] MED LIST changes: +ASPI81CH PO; +BENZ100A PO; +CALCIUM CIT 311 EACH PO; +DELTASONE20 MG PO; +EUTHYROX25 MC1 PO; +IPRAT-ALBUT 0.5-3 ML INH; +MUCINEX FAST M; +MULTIPLE VITAM1 EACH PO; +NORTRIPTYLINE H50 M2 PO; +OMEP20ER PO; +PRAVASTATIN SOD40 MG PO; +SPIRIVA RESPIMAT4 G3 INH; +SPIRONOLACTONE25 MG PO; +WIXELA 500-501 EAC1 INH
--- NOTE | 2020-10-23 08:09 | NUR ---
10/23/20 0809 Melissa Nickerson EPI USED TO SOAK PLEDGETS FOR CASE.
--- NOTE | 2020-10-23 08:59 | NUR ---
10/23/20 0859 Kaylynn Griffiths PT IS HAVING A PRODUCTIVE COUGH. HER LUNGS ARE CLEAR. SHE SAYS HER THROAT FEEL LIKE THERE IS A LOT OF PHLEGM.
== END 2020-10-23 09:30 | disposition home or self-care (01) ==
LOC: ORSCSDS 06:24
PROVIDERS: Otolaryngology
PROC: 09CW8ZZ Extirpation of Matter from Right Sphenoid Sinus, Via Natural or Artificial Opening Endoscopic (ICD-10-PCS; principal; 2020-10-23 07:30)
DX: J32.4 Chronic pansinusitis (principal); I10 Essential (primary) hypertension; J44.9 Chronic obstructive pulmonary disease, unspecified; Z87.891 Personal history of nicotine dependence; K21.9 Gastro-esophageal reflux disease without esophagitis; Z79.899 Other long term (current) drug therapy
CPT/HCPCS: 87070; 87075; 87077; 87147; 87186; 87205; J0171; J1100; J2405; J2704; J3010

== ENCOUNTER 2021-05-21 00:41 | Day surgery (SDC) | payer MEDICARE, BC ==
--- NOTE | 2021-05-21 10:32 | NUR ---
INJECTION DONE IM [facility] ON RIGHT SIDE
--- NOTE | 2021-05-21 10:33 | NUR ---
LABS DRAWN FROM IV START PER HOSPITAL PROTOCOL
--- NOTE | 2021-05-21 11:49 | NUR ---
LABS DRAWN AT 30 MIN AND 60MIN VIA IV PER HOSPITAL PROTOCOL
[2021-05-21] MEDS ORDERED: TRAM50 PO (15:48)
[2021-05-21] MEDS ORDERED: LEVSOD25 PO (15:49)
[2021-05-21] MEDS ORDERED: PRAM.125 PO (15:49)
[2021-05-21] MEDS ORDERED: SPIR25 PO (15:49)
== END 2021-05-21 11:35 | disposition home or self-care (01) ==
LOC: ATC 00:41
DX: E27.49 Other adrenocortical insufficiency (principal); E03.9 Hypothyroidism, unspecified; J44.9 Chronic obstructive pulmonary disease, unspecified; K21.9 Gastro-esophageal reflux disease without esophagitis; I10 Essential (primary) hypertension; E78.5 Hyperlipidemia, unspecified; Z88.2 Allergy status to sulfonamides; Z88.7 Allergy status to serum and vaccine; Z88.8 Allergy status to other drugs, medicaments and biological substances; Z79.899 Other long term (current) drug therapy
CPT/HCPCS: 80400; 82533; 96372; J0834

== ENCOUNTER → 2021-07-02 | Outpatient (CLI) | payer MEDICARE, BC ==
[~2021-07-02] MED LIST changes: +LEVSOD25 PO; +PRAM.125 PO; +SPIR25 PO
== END ==
LOC: LAB SHORT 11:16 → LAB 11:16
DX: C44.301 Unspecified malignant neoplasm of skin of nose (principal); D16.4 Benign neoplasm of bones of skull and face
CPT/HCPCS: 88305

== ENCOUNTER 2021-11-16 11:16 | Day surgery (SDC) | payer MEDICARE, BC ==
[~2021-11-16] VITALS: Ht 157.5 cm; Wt 54.6 kg
== END 2021-11-16 14:05 | disposition home or self-care (01) ==
LOC: ORSCSDS 11:16
PROVIDERS: Internal Medicine Gastroenterology
PROC: 0DBM8ZX Excision of Descending Colon, Via Natural or Artificial Opening Endoscopic, Diagnostic (ICD-10-PCS; principal; 2021-11-16 12:30)
DX: Z12.11 Encounter for screening for malignant neoplasm of colon (principal); K57.30 Diverticulosis of large intestine without perforation or abscess without bleeding; D12.4 Benign neoplasm of descending colon; K52.9 Noninfective gastroenteritis and colitis, unspecified; K21.9 Gastro-esophageal reflux disease without esophagitis; J44.9 Chronic obstructive pulmonary disease, unspecified; Z79.82 Long term (current) use of aspirin; Z79.899 Other long term (current) drug therapy
CPT/HCPCS: 88305; J2704; J7120

== ENCOUNTER → 2021-12-16 | Outpatient (CLI) | payer MEDICARE, BC | END | disposition home or self-care (01) | LOC: LAB SHORT 12:07 → LAB 12:07 | DX: S00.31XA Abrasion of nose, initial encounter (principal) | CPT/HCPCS: 88305; 88312 ==

== ENCOUNTER 2022-02-05 07:00 | Emergency (ER) | payer BC, MEDICARE ==
[~2022-02-05] VITALS: Ht 157.5 cm; Wt 54.4 kg
== END 2022-02-05 09:44 | disposition home or self-care (01) ==
LOC: ER 07:00
DX: S01.111A Laceration without foreign body of right eyelid and periocular area, initial encounter (principal); S61.512A Laceration without foreign body of left wrist, initial encounter; W01.0XXA Fall on same level from slipping, tripping and stumbling without subsequent striking against object, initial encounter; M17.12 Unilateral primary osteoarthritis, left knee; I10 Essential (primary) hypertension; J44.9 Chronic obstructive pulmonary disease, unspecified; Z88.2 Allergy status to sulfonamides; Z88.7 Allergy status to serum and vaccine; Z79.899 Other long term (current) drug therapy
CPT/HCPCS: 12013; 70450; 70486; 73562-LT; 99284-25; A9270

== ENCOUNTER → 2022-05-18 | Outpatient (CLI) | payer MEDICARE, BC | END | disposition home or self-care (01) | LOC: LAB 09:16 → LAB SHORT 09:16 | DX: D48.5 Neoplasm of uncertain behavior of skin (principal) | CPT/HCPCS: 88305 ==

== ENCOUNTER → 2022-06-02 | Outpatient (CLI) | payer MEDICARE, BC | LOC: LAB SHORT 12:55 → PLD 12:55 | DX: C44.722 Squamous cell carcinoma of skin of right lower limb, including hip (principal) | CPT/HCPCS: 88305 ==

== ENCOUNTER 2023-08-12 14:16 | Emergency (ER) | payer MEDICARE, BC ==
[~2023-08-12] VITALS: Ht 157.5 cm; Wt 56.7 kg
[2023-08-12 14:53] VITALS: BP 162/70
[2023-08-12] MEDS ORDERED: ENOX40I SC (15:21)
[2023-08-12] MEDS ORDERED: TRAM50 PO (15:22)
[2023-08-12] MEDS ORDERED: OXYC5 PO (15:22)
[2023-08-12] MEDS ORDERED: ALBU90OI INH (15:23)
[2023-08-12] MEDS ORDERED: IPRAT-ALBUT 0.5-3 ML INH (15:25)
[2023-08-12] MEDS ORDERED: SPIRIVA RESPIMAT4 G3 INH (15:28)
[2023-08-12] MEDS ORDERED: TIZA4 PO (15:29)
[2023-08-12] MEDS ORDERED: WIXELA 500-501 EAC1 INH (15:30)
[2023-08-12] MEDS ORDERED: ROPINIROLE HCL2 M1 PO (15:31)
[2023-08-12] MEDS ORDERED: ELIQUIS5 M2 PO (17:03)
== END 2023-08-12 17:49 | disposition home or self-care (01) ==
LOC: ER 14:16
DX: I82.412 Acute embolism and thrombosis of left femoral vein (principal); I10 Essential (primary) hypertension; M19.90 Unspecified osteoarthritis, unspecified site; M81.0 Age-related osteoporosis without current pathological fracture; J44.9 Chronic obstructive pulmonary disease, unspecified; Z96.642 Presence of left artificial hip joint; Z88.7 Allergy status to serum and vaccine; Z88.2 Allergy status to sulfonamides; Z79.01 Long term (current) use of anticoagulants; Z79.899 Other long term (current) drug therapy; Z79.51 Long term (current) use of inhaled steroids
CPT/HCPCS: 99283-25

== ENCOUNTER → 2024-03-19 | Outpatient (CLI) | payer MEDICARE, BC ==
[~2024-03-19] MED LIST changes: +ELIQUIS5 M2 PO; +ENOX40I SC; +OXYC5 PO; +ROPINIROLE HCL2 M1 PO; +TIZA4 PO
== END | disposition home or self-care (01) ==
LOC: LAB SHORT 10:12 → LAB 10:12
DX: Z09 Encounter for follow-up examination after completed treatment for conditions other than malignant neoplasm (principal); Z86.718 Personal history of other venous thrombosis and embolism
CPT/HCPCS: 85379

== ENCOUNTER → 2024-08-09 | Outpatient (CLI) | payer MEDICARE, BC | LOC: LAB 15:05 → LAB SHORT 15:05 | DX: L04.0 Acute lymphadenitis of face, head and neck (principal) | CPT/HCPCS: 88173 ==

== ENCOUNTER 2025-05-07 20:11 | Inpatient (IN) | payer MEDICARE, BC ==
[~2025-05-07] VITALS: Ht 160 cm; Wt 56.2 kg
[2025-05-07 20:57] LABS: BASOPHILS ABSOLUTE AUTO 0.02 K/mm3 (0.00-0.23); BASOPHILS PERCENT AUTO 0 % (0-2); EOSINOPHILS ABSOLUTE AUTO 0.02 K/mm3 (0.00-0.68); EOSINOPHILS PERCENT AUTO 0 % (0-6); Hematocrit 32.5 % (33.0-51.0); Hemoglobin 11.0 g/dL (11.5-16.0); IMMATURE GRAN ABSOLUTE AUTO 0.08 K/mm3 (0.00-0.10); IMMATURE GRAN PERCENT AUTO 1 % (0-1); LYMPHOCYTES ABSOLUTE AUTO 0.25 K/mm3 (0.84-5.20); LYMPHOCYTES PERCENT AUTO 2 % (21-46); MONOCYTES ABSOLUTE AUTO 0.70 K/mm3 (0.16-1.47); MONOCYTES PERCENT AUTO 6 % (4-13); Mean Corpuscular HGB Conc 33.8 g/dL (31.5-36.5); Mean Corpuscular Volume 86 fL (80-100); NEUTROPHILS ABSOLUTE AUTO 11.00 K/mm3 (1.96-9.15); NEUTROPHILS PERCENT AUTO 91 % (41-73); NRBC ABSOLUTE 0.00 K/mm3 (0.00-0.02); NRBC Auto 0.0 /100 WBC (0.0-0.2); Platelet Count 260 K/mm3 (150-400); RDW Coefficient Variation 13.9 % (11.7-14.2); RDW Standard Deviation 43.5 fL (35.1-46.3)
[2025-05-07 21:15] LABS: Alanine Aminotransfer (ALT/SGP 21 U/L (12-78); Albumin, Blood 3.2 g/dL (3.4-5.0); Albumin/Globulin Ratio 0.9 (0.8-1.8); Anion Gap 10 mmol/L (3-11); Aspartate Aminotrans (AST/SGOT 17 U/L (12-37); Bilirubin, Total 0.7 mg/dL (0.1-1.0); Blood Urea Nitrogen 19 mg/dL (8-24); CO2, Blood 22 mmol/L (21-32); Calcium, Blood 8.8 mg/dL (8.5-10.1); Chloride, Blood 92 mmol/L (98-108); Creatinine, Blood 0.77 mg/dL (0.40-1.00); Globulin, Blood 3.5 g/dL (2.2-4.0); Glucose, Blood 117 mg/dL (70-99); Magnesium, Blood 2.0 mg/dL (1.6-2.4); Potassium, Blood 4.3 mmol/L (3.5-5.5); Sodium, Blood 120 mmol/L (136-145); Total Protein, Blood 6.7 g/dL (6.4-8.2)
[2025-05-07 21:25] LABS: Source, Urine Clean Catch
[2025-05-07 21:29] LABS: Bilirubin, Urine Neg (Neg); Color, Urine Yellow (P-Yellow); Glucose Qualitative, Urine Neg (Neg); Ketones, Urine Neg (Neg); Leukocyte Esterase, Urine 2+ (Neg); Protein, Urine 2+ (Neg); Specific Gravity, Urine 1.015 (1.003-1.022); Urobilinogen, Urine 1+ (Normal)
[2025-05-07 21:40] LABS: Red Blood Cells, Urine 0-2 /hpf (0-2)
[2025-05-07] MEDS ORDERED: NS 1,000 ML IV SCH (21:50)
[2025-05-07] MEDS ORDERED: Ondansetron HCl 2 MG / ML 2ML Vial IV PRN (22:40)
[2025-05-07] MEDS ORDERED: NS 1,000 ML IV ONE (22:40)
[2025-05-07] MEDS ORDERED: CefTRIAXone Sodium 1,000 MG in NS 100 ML IV SCH (22:59)
[2025-05-07] MEDS ORDERED: Enoxaparin 40 MG/0.4 ML SYR SC SCH (23:00)
[2025-05-07 23:02] LABS: CHOL/HDL RATIO 2.2; Cholesterol 106 mg/dL (50-200); HDL Cholesterol 49 mg/dL (>39); LDL/HDL RATIO 0.9; Low Density Lipoprotein Chol 43 mg/dL (0-110); Thyroid Stimulating Hormone 2.870 uIU/mL (0.360-4.800); Triglycerides 68 mg/dL (30-160); Very Low Density Lipoprot Chol 13 mg/dL (6-32)
[2025-05-07 23:44] VITALS: BP 132/62
[2025-05-08 04:54] LABS: BASOPHILS ABSOLUTE AUTO 0.03 K/mm3 (0.00-0.23); BASOPHILS PERCENT AUTO 0 % (0-2); EOSINOPHILS ABSOLUTE AUTO 0.05 K/mm3 (0.00-0.68); EOSINOPHILS PERCENT AUTO 1 % (0-6); Hematocrit 29.1 % (33.0-51.0); Hemoglobin 9.7 g/dL (11.5-16.0); IMMATURE GRAN ABSOLUTE AUTO 0.10 K/mm3 (0.00-0.10); IMMATURE GRAN PERCENT AUTO 1 % (0-1); LYMPHOCYTES ABSOLUTE AUTO 0.59 K/mm3 (0.84-5.20); LYMPHOCYTES PERCENT AUTO 6 % (21-46); MONOCYTES ABSOLUTE AUTO 0.81 K/mm3 (0.16-1.47); MONOCYTES PERCENT AUTO 8 % (4-13); Mean Corpuscular HGB Conc 33.3 g/dL (31.5-36.5); Mean Corpuscular Volume 86 fL (80-100); NEUTROPHILS ABSOLUTE AUTO 9.12 K/mm3 (1.96-9.15); NEUTROPHILS PERCENT AUTO 85 % (41-73); NRBC ABSOLUTE 0.00 K/mm3 (0.00-0.02); NRBC Auto 0.0 /100 WBC (0.0-0.2); Platelet Count 234 K/mm3 (150-400); RDW Coefficient Variation 14.0 % (11.7-14.2); RDW Standard Deviation 43.8 fL (35.1-46.3)
[2025-05-08 05:23] VITALS: BP 123/59
[2025-05-08 05:24] LABS: Alanine Aminotransfer (ALT/SGP 16.0 U/L (12-78); Albumin, Blood 2.7 g/dL (3.4-5.0); Albumin/Globulin Ratio 0.9 (0.8-1.8); Anion Gap 10.0 mmol/L (3-11); Aspartate Aminotrans (AST/SGOT 14.0 U/L (12-37); Bilirubin, Total 0.6 mg/dL (0.1-1.0); Blood Urea Nitrogen 12.0 mg/dL (8-24); CO2, Blood 24.0 mmol/L (21-32); Calcium, Blood 8.8 mg/dL (8.5-10.1); Chloride, Blood 98.0 mmol/L (98-108); Creatinine, Blood 0.71 mg/dL (0.40-1.00); Globulin, Blood 3.1 g/dL (2.2-4.0); Glucose, Blood 101.0 mg/dL (70-99); Potassium, Blood 3.7 mmol/L (3.5-5.5); Sodium, Blood 128.0 mmol/L (136-145); Total Protein, Blood 5.8 g/dL (6.4-8.2)
[2025-05-08] MEDS ORDERED: Tiotropium Bromide 2.5 MCG/ACT MIST INHAL (10 ACT/4 GM) INH SCH (06:35)
[2025-05-08] MEDS ORDERED: Formoterol/Mometasone MDI 5/200 mcg 13 GM INH SCH (07:00)
[2025-05-08] MEDS ORDERED: Albuterol HFA200 ACT/6.7 GM INH INH PRN (07:00)
[2025-05-08 07:35] VITALS: BP 143/66
[2025-05-08] MEDS ORDERED: Ipratropium/Albuterol SulF 2.5-0.5MG/3 ML Amp INH SCH (09:00)
[2025-05-08 11:51] VITALS: BP 142/66
[2025-05-08 15:59] VITALS: BP 156/85
[2025-05-08 20:35] VITALS: BP 149/75
[2025-05-08] MEDS ORDERED: Latanoprost 0.005% Opth Soln 2.5 ML BOTHEYES SCH (21:00)
[2025-05-08 23:39] VITALS: BP 125/63
[2025-05-09 05:14] VITALS: BP 160/82
[2025-05-09 05:19] LABS: BASOPHILS ABSOLUTE AUTO 0.03 K/mm3 (0.00-0.23); BASOPHILS PERCENT AUTO 0 % (0-2); EOSINOPHILS ABSOLUTE AUTO 0.11 K/mm3 (0.00-0.68); EOSINOPHILS PERCENT AUTO 1 % (0-6); Hematocrit 31.0 % (33.0-51.0); Hemoglobin 10.3 g/dL (11.5-16.0); IMMATURE GRAN ABSOLUTE AUTO 0.14 K/mm3 (0.00-0.10); IMMATURE GRAN PERCENT AUTO 1 % (0-1); LYMPHOCYTES ABSOLUTE AUTO 0.53 K/mm3 (0.84-5.20); LYMPHOCYTES PERCENT AUTO 6 % (21-46); MONOCYTES ABSOLUTE AUTO 0.81 K/mm3 (0.16-1.47); MONOCYTES PERCENT AUTO 8 % (4-13); Mean Corpuscular HGB Conc 33.2 g/dL (31.5-36.5); Mean Corpuscular Volume 87 fL (80-100); NEUTROPHILS ABSOLUTE AUTO 8.08 K/mm3 (1.96-9.15); NEUTROPHILS PERCENT AUTO 83 % (41-73); NRBC ABSOLUTE 0.00 K/mm3 (0.00-0.02); NRBC Auto 0.0 /100 WBC (0.0-0.2); Platelet Count 265 K/mm3 (150-400); RDW Coefficient Variation 14.1 % (11.7-14.2); RDW Standard Deviation 45.6 fL (35.1-46.3)
[2025-05-09 05:52] LABS: Alanine Aminotransfer (ALT/SGP 17.0 U/L (12-78); Albumin, Blood 2.9 g/dL (3.4-5.0); Albumin/Globulin Ratio 0.9 (0.8-1.8); Anion Gap 8.0 mmol/L (3-11); Aspartate Aminotrans (AST/SGOT 14.0 U/L (12-37); Bilirubin, Total 0.4 mg/dL (0.1-1.0); Blood Urea Nitrogen 7.0 mg/dL (8-24); CO2, Blood 23.0 mmol/L (21-32); Calcium, Blood 8.5 mg/dL (8.5-10.1); Chloride, Blood 100.0 mmol/L (98-108); Creatinine, Blood 0.61 mg/dL (0.40-1.00); Globulin, Blood 3.4 g/dL (2.2-4.0); Glucose, Blood 95.0 mg/dL (70-99); Potassium, Blood 3.7 mmol/L (3.5-5.5); Sodium, Blood 127.0 mmol/L (136-145); Total Protein, Blood 6.3 g/dL (6.4-8.2)
[2025-05-09 07:23] VITALS: BP 157/68
[2025-05-09] MEDS ORDERED: CLOP75 PO (12:03)
[2025-05-09] MEDS ORDERED: SODCHL1 PO (12:05)
[2025-05-09] MEDS ORDERED: Norco 5-325 Ta1 EACH PO (12:06)
== END 2025-05-09 12:54 | disposition home health service (06) | DRG 641 ==
LOC: ER 20:11 → ERHOLD 20:12 → MEDS 20:12
PROVIDERS: Hospitalist; Student in an Organized Health Care Education/Training Program; ADMIT Internal Medicine
DX: E87.1 Hypo-osmolality and hyponatremia (principal); G45.9 Transient cerebral ischemic attack, unspecified; I10 Essential (primary) hypertension; M19.90 Unspecified osteoarthritis, unspecified site; F32.A Depression, unspecified; J44.9 Chronic obstructive pulmonary disease, unspecified; M81.0 Age-related osteoporosis without current pathological fracture; E87.8 Other disorders of electrolyte and fluid balance, not elsewhere classified; M85.80 Other specified disorders of bone density and structure, unspecified site; R13.12 Dysphagia, oropharyngeal phase; I08.0 Rheumatic disorders of both mitral and aortic valves; R54 Age-related physical debility; Z87.19 Personal history of other diseases of the digestive system; Z90.89 Acquired absence of other organs; Z90.710 Acquired absence of both cervix and uterus; Z90.49 Acquired absence of other specified parts of digestive tract; Z98.890 Other specified postprocedural states; Z86.718 Personal history of other venous thrombosis and embolism; Z79.01 Long term (current) use of anticoagulants; Z79.51 Long term (current) use of inhaled steroids; Z79.899 Other long term (current) drug therapy; Z88.2 Allergy status to sulfonamides; Z88.7 Allergy status to serum and vaccine
CPT/HCPCS: 36415; 70450; 70496; 70498; 71045; 80053; 80061; 81001; 83605; 83735; 83880; 84439; 84443; 84484; 85025; 87086; 92610; 93005; 93010; 93306; 94640; 94664; 94760; 96372-59; 96374-59; 97116; 97161; 97165; 97530; 99285-25; A9270; G0378; J0696; J1650; J7030; Q9967

== ENCOUNTER 2025-06-07 02:35 | Day surgery (SDC) | payer MEDICARE, BC ==
[~2025-06-07 02:35] MED LIST changes: +CLOP75 PO; +Norco 5-325 Ta1 EACH PO; +SODCHL1 PO
[2025-06-07] MEDS ORDERED: Lidocaine HCl 4% Cream 5 GM ONE (08:13)
== END 2025-06-07 23:00 | disposition home or self-care (01) ==
LOC: WOUND 02:35
DX: S81.812A Laceration without foreign body, left lower leg, initial encounter (principal); X58.XXXA Exposure to other specified factors, initial encounter; S51.011D Laceration without foreign body of right elbow, subsequent encounter; X58.XXXD Exposure to other specified factors, subsequent encounter; I87.2 Venous insufficiency (chronic) (peripheral); I73.9 Peripheral vascular disease, unspecified; I10 Essential (primary) hypertension; H40.9 Unspecified glaucoma; J44.9 Chronic obstructive pulmonary disease, unspecified; M19.90 Unspecified osteoarthritis, unspecified site; Z88.7 Allergy status to serum and vaccine; Z88.2 Allergy status to sulfonamides; Z87.891 Personal history of nicotine dependence
CPT/HCPCS: A9270; G0463

== ENCOUNTER 2025-06-15 02:57 | Day surgery (SDC) | payer MEDICARE, BC ==
[~2025-06-15 02:57] MED LIST changes: +Lidocaine HCl 4% Cream 5 GM ONE
== END 2025-06-15 23:00 | disposition home or self-care (01) ==
LOC: WOUND 02:57
DX: S81.812A Laceration without foreign body, left lower leg, initial encounter (principal); W19.XXXA Unspecified fall, initial encounter; I87.2 Venous insufficiency (chronic) (peripheral); I73.9 Peripheral vascular disease, unspecified; I10 Essential (primary) hypertension; M19.90 Unspecified osteoarthritis, unspecified site
CPT/HCPCS: A9270

== ENCOUNTER 2025-06-28 02:34 | Day surgery (SDC) | payer MEDICARE, BC ==
[~2025-06-28 02:34] MED LIST changes: -Lidocaine HCl 4% Cream 5 GM ONE
== END 2025-06-28 23:00 | disposition home or self-care (01) ==
LOC: WOUND 02:34
DX: S81.812D Laceration without foreign body, left lower leg, subsequent encounter (principal); I73.9 Peripheral vascular disease, unspecified; I10 Essential (primary) hypertension
CPT/HCPCS: 36415; 80053; 83880; 85025; G0463